=== PATIENT | male | born 1980 | race Caucasian/White ===

== ENCOUNTER 2023-09-07 23:44 | Emergency (ER) | payer OTHER, SELFPAY ==
[2023-09-07 23:50] VITALS: BP 172/98; PULSE 81; RESP 16; TEMP 37; O2SAT 96; O2SAT 97; BMI 34.4
[2023-09-07 23:51] VITALS: BP 200/109; O2SAT 95
--- NOTE | 2023-09-07 23:52 | ECG_ITS ---
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
[2023-09-08] VITALS (10 sets, daily range): BP systolic 138–177; BP diastolic 90–94; PULSE 70–82; RESP 12–22; O2SAT 96–99
--- NOTE | 2023-09-08 00:11 | ED_ITS ---
HPI - Arrhythmia/Palpitations General Chief Complaint: Arrhythmia/Palpitations Stated Complaint: chest pain Time Seen by Provider: 09/07/23 23:57 Source: patient Mode of arrival: walk-in Limitations: no limitations History of Present Illness HPI narrative: patient presents complaining of a flutter in his chest tonight. States similar flutter on and off over past couple of years with neg workup including echo. Che s have history of HTN and admits to poor compliance taking his medication and states he smokes too much. No chest pain or nausea Related Data Home Medications Medication Instructions Recorded Confirmed lisinopril 20 mg tablet 20 mg PO DAILY 09/07/23 09/07/23 metoprolol tartrate 25 mg tablet 25 mg PO DAILY 09/07/23 09/07/23 Allergies Allergy/AdvReac Type Severity Reaction Status Date / Time No Known Drug Allergies Allergy Verified 09/07/23 23:49 Review of Systems ROS Status of ROS 10 or more systems reviewed and unremark able except as noted in history and below PFS PFS Social History Smoking status: Current every day smoker Exam Constitutional Vital Signs, click to edit/add: Last Vital Signs Temp 98.6 F 09/07/23 23:50 Pulse 75 09/08/23 01:00 Resp 21 09/08/23 01:00 BP 177/90 H 09/08/23 00:03 Pulse Ox 96 09/08/23 00:20 O2 Del Method Room Air 09/07/23 23:50 Common normals: no apparent distress, average body habitus, oriented x3, no limitations, healthy appearing, alert and well nourished [facility] Common normals: normocephalic and head/scalp atraumatic Eye Common normals: PERRL, EOMs intact bilaterally and conjunctivae normal Respiratory Common normals: normal respiratory effort, no retractions and no use of accessory muscles Cardio Common normals: regular rate, regular rhythm, S1 normal heart sound and S2 normal heart sound GI Common normals: Normal to inspection, nondistended, normoactive bowel sounds present, soft to palpation and non-tender Extremity Common normals: normal to inspection Neuro Common normals: oriented x3, CN's II-XII intact bilaterally, moves all extremities and no focal motor deficits Psych Appearance: grossly normal Course Vital Signs Vital signs: Vital Signs Temperature 98.6 F 09/07/23 23:50 Pulse Rate 81 09/07/23 23:50 Respiratory Rate 16 09/07/23 23:50 Blood Pressure 172/98 H 09/07/23 23:50 Pulse Oximetry 97 09/07/23 23:50 Oxygen Delivery Method Room Air 09/07/23 23:50 Temperature 98.6 F 09/07/23 23:50 Pulse Rate 75 09/08/23 01:00 Respiratory Rate 21 09/08/23 01:00 Blood Pressure 177/90 H 09/08/23 00:03 Pulse Oximetry 96 09/08/23 00:20 Oxygen Delivery Method Room Air 09/07/23 23:50 MDM - Arrhythmia/Palpitations MDM Narrative Medical decision making narrative: patient presents complaining of heart flutter on and off today. Similar problem on and off for a couple of years. Exam neg. including clear chest. Troponin neg, d-dimer neg. Clinically patient not in CHF and no suspicion of pneumonia. discharged home in god condition to follow up with his doctor Lab Data Labs: Lab Results 09/08/23 Range/Units 00:02 WBC 14.9 H (4.0-11.0) 10^3/uL RBC 5.08 (4.70-6.10) 10^6/uL Hgb 15.5 (14.0-18.0) g/dL Hct 44.8 (42.0-54.0) % MCV 88.2 (80.0-94.0) fL MCH 30.5 (25.9-34.0) pg MCHC 34.6 (29.9-35.2) g/dL RDW 12.3 (11.0-15.0) % Plt Count 200 (150-450) 10^3/uL MPV 10.6 (9.5-13.5) fL Neut % (Auto) 70.7 (43.0-75.0) % Lymph % (Auto) 22.3 (20.5-60.0) % [place] % (Auto) 5.2 (1.7-12.0) % Eos % (Auto) 1.0 (0.9-7.0) % Baso % (Auto) 0.4 (0.2-2.0) % Neut # (Auto) 10.5 H (1.4-6.5) 10^3/uL Lymph # (Auto) 3.3 (1.2-3.8) 10^3/uL [place] # (Auto) 0.8 (0.3-0.8) 10^3/uL Eos # (Auto) 0.2 (0.0-0.7) 10^3/uL Baso # (Auto) 0.1 (0.0-0.1) 10^3/uL Abs Immat Gran (auto) 0.06 H (0.00-0.03) 10^3/uL Imm/Tot Granulo (auto) 0.4 (0.0-0.5) % D-Dimer 0.38 (<=0.59) mg/L FEU Sodium 143 (136-145) mmol/L Potassium 3.8 (3.5-5.1) mmol/L Chloride 107 (98-107) mmol/L Carbon Dioxide 29.1 (21.0-32.0) mmol/L Anion Gap 10.7 BUN 18.0 (7.0-18.0) mg/dL Creatinine 0.96 (0.70-1.30) mg/dL Est GFR ( Amer) >60 (>=60) Est GFR (Non-Af Amer) >60 (>=60) BUN/Creatinine Ratio 18.8 Glucose 187 H (74-106) mg/dL Calcium 8.8 (8.5-10.1) mg/dL Troponin I High Sens 6.6 (4.0-76.1) pg/mL Discharge Plan Discharge Chief Complaint: Arrhythmia/Palpitations Clinical Impression: Palpitations Patient Disposition: Home, Self-Care Prescriptions / Home Meds: No Action lisinopril 20 mg tablet 20 mg PO DAILY metoprolol tartrate 25 mg tablet 25 mg PO DAILY Instructions: Heart Palpitations (ED) Additional Instructions: follow up with your doctor this week for recheck Stand Alone Forms: Portal Instructions Referrals: Physician,Non-Staff, MD [Primary Care Provider] - 1 week
--- NOTE | 2023-09-08 00:13 | XR_ITS ---
The [address] [address] Patient Name: SILVIA ANDERSON MRN: [id number] date: 1980 Sex: M Assigned Patient Location: ER Current Patient Location: ER Accession/Order Number: [id number] Exam Date: 09/08/2023 00:25 Report Date: 09/08/2023 00:47 At the request of: JUANA MORIN Procedure: XR chest 1V CXR HISTORY: Shortness of breath. COMPARISON: None. TECHNIQUE: 1 view of the chest submitted for review. FINDINGS: The lungs are hyperaerated. Lines and tubes: None No acute focal infiltrate. Prominence of bronchopulmonary markings. No effusion. Cardiac silhouette measures within normal limits. Pulmonary vascularity is prominent. Osseous structures are normal for age. XR/XR chest 1V IMPRESSION: Prominence of bronchopulmonary markings. Please correlate for viral pneumonia vs fluid overload. Electronically authenticated by: JOSE MARTIN DOYLE Date: 09/08/2023 00:47
[2023-09-08 00:31] LABS: Basophils Absolute Auto 0.1 10^3/uL (0.0-0.1); Basophils Percent Auto 0.4 % (0.2-2.0); Eosinophils Absolute Auto 0.2 10^3/uL (0.0-0.7); Hematocrit 44.8 % (42.0-54.0); Hemoglobin 15.5 g/dL (14.0-18.0); Immature Granulocytes Abs Auto 0.06 10^3/uL (0.00-0.03); Immature Granulocytes Pct Auto 0.4 % (0.0-0.5); Lymphocytes Absolute Auto 3.3 10^3/uL (1.2-3.8); Lymphocytes Percent Auto 22.3 % (20.5-60.0); Mean Corpuscular HGB Conc 34.6 g/dL (29.9-35.2); Mean Corpuscular Hemoglobin 30.5 pg (25.9-34.0); Mean Corpuscular Volume 88.2 fL (80.0-94.0); Mean Platelet Volume 10.6 fL (9.5-13.5); Monocytes Absolute Auto 0.8 10^3/uL (0.3-0.8); Monocytes Percent Auto 5.2 % (1.7-12.0); Neutrophils Absolute Auto 10.5 10^3/uL (1.4-6.5); Neutrophils Percent Auto 70.7 % (43.0-75.0); Platelet Count 200 10^3/uL (150-450); Red Blood Count 5.08 10^6/uL (4.70-6.10); Red Cell Distribution Width 12.3 % (11.0-15.0); White Blood Count 14.9 10^3/uL (4.0-11.0)
[2023-09-08 00:44] LABS: Anion Gap 10.7; BUN Creatinine Ratio 18.8; Calcium 8.8 mg/dL (8.5-10.1); Carbon Dioxide 29.1 mmol/L (21.0-32.0); Chloride 107 mmol/L (98-107); Estimated GFR (African America >60 (>=60); Estimated GFR (Non-African Ame >60 (>=60); Glucose 187 mg/dL (74-106); Potassium 3.8 mmol/L (3.5-5.1); Sodium 143 mmol/L (136-145); Troponin I High Sensitivity 6.6 pg/mL (4.0-76.1)
[2023-09-08 00:59] LABS: D Dimer 0.38 mg/L FEU (<=0.59)
== END 2023-09-08 01:15 | disposition home or self-care (01) ==
PROVIDERS: Emergency Provider Internal Medicine; PCP Family Medicine
DX: R00.2 Palpitations (principal); I10 Essential (primary) hypertension; Z79.899 Other long term (current) drug therapy; F17.210 Nicotine dependence, cigarettes, uncomplicated
CPT/HCPCS: 36415; 71045; 80048; 84484; 85025; 85378; 93005; 99285

== ENCOUNTER 2024-01-26 10:36 | Outpatient (OUT) | payer OTHER, SELFPAY ==
[2024-01-26 11:26] LABS: Basophils Absolute Auto 0.1 10^3/uL (0.0-0.1); Basophils Percent Auto 0.4 % (0.2-2.0); Eosinophils Absolute Auto 0.2 10^3/uL (0.0-0.7); Eosinophils Percent Auto 1.5 % (0.9-7.0); Hematocrit 44.6 % (42.0-54.0); Hemoglobin 15.4 g/dL (14.0-18.0); Immature Granulocytes Abs Auto 0.06 10^3/uL (0.00-0.03); Immature Granulocytes Pct Auto 0.5 % (0.0-0.5); Lymphocytes Absolute Auto 2.5 10^3/uL (1.2-3.8); Lymphocytes Percent Auto 22.1 % (20.5-60.0); Mean Corpuscular HGB Conc 34.5 g/dL (29.9-35.2); Mean Corpuscular Hemoglobin 29.6 pg (25.9-34.0); Mean Corpuscular Volume 85.8 fL (80.0-94.0); Mean Platelet Volume 10.1 fL (9.5-13.5); Monocytes Absolute Auto 0.5 10^3/uL (0.3-0.8); Monocytes Percent Auto 4.5 % (1.7-12.0); Neutrophils Absolute Auto 8.1 10^3/uL (1.4-6.5); Platelet Count 208 10^3/uL (150-450); White Blood Count 11.5 10^3/uL (4.0-11.0)
[2024-01-26 11:48] LABS: Estimated Average Glucose 128 mg/dL; Glycohemoglobin A1C 6.1 % (4.5-6.2)
[2024-01-26 12:57] LABS: Alanine Aminotransferase 42 U/L (16-63); Albumin Globulin Ratio 1.2; Albumin Level 3.8 g/dL (3.4-5.0); Alkaline Phosphatase 82 U/L (46-116); Anion Gap 12.1; Aspartate Amino Transferase 21 U/L (15-37); BUN Creatinine Ratio 16.2; Bilirubin Total 0.6 mg/dL (0.2-1.0); Calcium 8.5 mg/dL (8.5-10.1); Carbon Dioxide 28.1 mmol/L (21.0-32.0); Chloride 104 mmol/L (98-107); Chol HDL Ratio 6.8; Cholesterol 216 mg/dL (<=200); Estimated GFR (African America >60 (>=60); Estimated GFR (Non-African Ame >60 (>=60); Free T3 3.41 pg/mL (2.18-3.98); Globulin 3.3 g/dL; Glucose 138 mg/dL (74-106); HDL Cholesterol 32 mg/dL (40-60); Potassium 4.2 mmol/L (3.5-5.1); Sodium 140 mmol/L (136-145); Thyroid Stimulating Hormone 1.654 uIU/mL (0.358-3.740); Total Protein 7.1 g/dL (6.4-8.2); Triglycerides 172 mg/dL (<=150); VLDL CHOLESTEROL 34.4 mg/dL
[2024-01-26 13:02] LABS: Prostate Specific Antigen Scrn 1.85 ng/mL (<=4.00)
[2024-01-27 05:07] LABS: Insulin 21.5 uIU/mL (2.6-24.9)
== END 2024-01-26 10:37 | disposition home or self-care (01) ==
LOC: LAB 10:39
PROVIDERS: PCP Family Medicine; Visit Provider Family Medicine
DX: Z00.00 Encounter for general adult medical examination without abnormal findings (principal)
CPT/HCPCS: 36415; 80053; 80061; 83036; 83525; 84436; 84443; 84481; 85025; G0103

== ENCOUNTER 2024-02-21 21:01 | Emergency (ER) | payer OTHER, SELFPAY ==
--- OUTSIDE RECORDS SUMMARY | 2024-02-21 21:05 | XMS_ITS | CCD ---
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 [facility] Comment on above: Performed By: #### B SHANDRA ALEJANDRA #### [facility] [address] [address] [address] Ishan Cage HSTROP 4.5 pg/mL Normal 4.0-76.1 [facility] Comment on above: Result Comment: CUT- OFF POINTS HAVE BEEN ESTABLISHED BASED ON THE FOURTH UNIVERSAL DEFINITIONS OF MYOCARDIAL INFARCTION. THE UPPER REFERENCE LIMIT (URL) OF TROPONIN, DEFINED THE 99TH PERCENTILE OF cTnI DISTRIBUTION IN A REFERENCE POPULATION, HAS BEEN CONFIRMED THE DECISION THRESHOLD FOR IA DIAGNOSIS. Performed By: #### B SHANDRA ALEJANDRA #### [facility] [address] [address] [address] Ishan Cage BAHMAN 33 ng/mL Normal 16-96 [facility] Comment on above: Performed By: #### B SHANDRA ALEJANDRA #### [facility] [address] [address] [address] Ishan Cage CBC AUTO DIFFon 04-22-2022 BASO # 0.1 103/ul Normal 0.0-0.1 [facility] Comment on above: Performed By: #### C BC ####[facility] [address] [id number] Cage Basophils/100 WBC (Bld) 0.4 % Normal 0.2-2.0 [facility] Comment on above: Performed By: #### C BC ####[facility] [address] [address]DrEllen Cage EO # 0.1 103/ul Normal 0.0-0.7 [facility] Comment on above: Performed By: #### C BC ####[facility] [address] [address]DrEllen Cage Eosinophils/100 WBC (Bld) 1.2 % Normal 0.9-7.0 [facility] Comment on above: Performed By: #### C BC ####[facility] [address] [address]DrEllen Cage Erythrocyte distribution width (RBC) [Ratio] 12.1 % Normal 11.0-15.0 [facility] Comment on above: Performed By: #### C BC ####[facility] [address] [id number] Cage Hematocrit (Bld) [Volume fraction] 45.6 % Normal 42.0-54.0 [facility] Comment on above: Performed By: #### C BC ####[facility] [address] [id number] Cage Hemoglobin (Bld) [Mass/Vol] 15.7 g/dL Normal 14.0-18.0 [facility] Comment on above: Performed By: #### C BC ####[facility] [address] [address]Dr. Ishan Cage IG # 0.04 10e3/ul Critically high 0.00-0.03 [facility] Comment on above: Performed By: #### C BC ####[facility] [address] [address]Dr. Ishan Cage IG % 0.4 % Normal 0.0-0.5 [facility] Comment on above: Performed By: #### C BC ####[facility] [address] [address]Dr. Ishan Cage LYMPH # 2.9 103/ul Normal 1.2-3.8 [facility] Comment on above: Performed By: #### C BC ####[facility] [address] [address]Dr. Ishan Cage Lymphocytes/100 WBC (Bld) 25.9 % Normal 20.5-60.0 [facility] Comment on above: Performed By: #### C BC ####[facility] [address] [address]Dr. Ishan Cage MANUAL DIFF REQ NO Normal [facility] Comment on above: Performed By: #### C BC ####[facility] [address] [address]Dr. Isahn Cage MCH (RBC) [Entitic mass] 29.8 pg Normal 25.9-34.0 [facility] Comment on above: Performed By: #### C BC ####[facility] [address] [address]Dr. Ishan Cage MCHC (RBC) [Mass/Vol] 34.4 g/dL Normal 29.9-35.2 [facility] Comment on above: Performed By: #### C BC ####[facility] [address] [address]Dr. Ishan Cage MCV (RBC) [Entitic vol] 86.5 fL Normal 80.0-94.0 [facility] Comment on above: Performed By: #### C BC ####[facility] [address] [id number]. Ishan Cage MONO # 0.5 103/ul Normal 0.3-0.8 [facility] Comment on above: Performed By: #### C BC ####[facility] [address] [id number]. Ishan Cage Monocytes/100 WBC (Bld) 4.7 % Normal 1.7-12.0 [facility] Comment on above: Performed By: #### C BC ####[facility] [address] [id number]. Ishan Cage NEUT # 7.6 103/ul Critically high 1.4-6.5 [facility] Comment on above: Performed By: #### C BC ####[facility] [address] [address]Dr. Ishan Cage Neutrophils/100 WBC (Bld) 67.4 % Normal 43.0-75.0 [facility] Comment on above: Performed By: #### C BC ####[facility] [address] [id number]. Ishan Cage Platelet mean volume (Bld) [Entitic vol] 9.8 fL Normal 9.5-13.5 [facility] Comment on above: Performed By: #### C BC ####[facility] [address] [id number]. Ishan Cage PLT 195 103/ul Normal 150-450 [facility] Comment on above: Performed By: #### C BC ####[facility] [address] [id number]. Ishan Cage RBC 5.27 106/ul Normal 4.70-6.10 [facility] Comment on above: Performed By: #### C BC ####[facility] [address] [id number]. Aylinishmael Niles WBC 11.2 103/ul Critically high 4.0-11.0 [facility] Comment on above: Performed By: #### C BC ####[facility] [address] [address]Dr. Ishan Cage D-DIMERon 04-22-2022 D-DIMER 0.32 mg/L FEU Normal <=0.59 [facility] Comment on above: Performed By: #### D DIM #### [facility] [address] [address] [address] Ishan Cage D-DIMER COMMENTS SEE BELOW Normal [facility] Comment on above: Result Comment: Incr eases in D-Dimer concentration observed with thromboembolic events can be variable due to localization, size, and age of the thrombus. Therefore, a thromboembolic event cannot be diagnosed with certainty on the basis of the reference range. D-Dimers may also be elevated for a variety of disorders including: advanced age, , coronary disease, cancer, liver disease, infection, inflammation, hematoma, DIC, trauma, post-surgery, diabetes, thrombolytic or anticoagulant therapy, stress, and generalized hospitalization. Performed By: #### D DIM #### [facility] [address] [address] [address] Ishan Cage PROF CHEM 8 (BAS METB)on Anion gap [Moles/Vol] 11.9 mmol/L Normal [facility] Comment on above: Performed By: #### B SHANDRA ALEJANDRA #### [facility] [address] [address] [address] Ishan Cage Calcium [Mass/Vol] 8.9 mg/dL Normal 8.5-10.1 [facility] Comment on above: Performed By: #### B SHANDRA ALEJANDRA #### [facility] [address] [address] [address] Ishan Cage Chloride [Moles/Vol] 107 mmol/L Normal 98-107 [facility] Comment on above: Performed By: #### B SHANDRA ALEJANDRA #### [facility] [address] [address] [address] Ishan Cage CO2 [Moles/Vol] 24.7 mmol/L Normal 21.0-32.0 [facility] Comment on above: Performed By: #### B JUSTYN, CMADM #### [facility] [address] [address] [address] Ishan Cage Creatinine [Mass/Vol] 0.86 mg/dL Normal 0.70-1.30 [facility] Comment on above: Performed By: #### B JUSTYN, CMADM #### [facility] [address] [address] [address] Ishan Cage EGFR-AF WELSH >60 Normal >=60 [facility] Comment on above: Performed By: #### B JUSTYN, CMADM #### [facility] [address] [address] [address] Ishan Cage EGFR-NON AF WELSH >60 Normal >=60 [facility] Comment on above: Performed By: #### B JUSTYN, CMADM #### [facility] [address] [address] [address] Ishan Cage Glucose [Mass/Vol] 129 mg/dL Critically high 74-106 [facility] Comment on above: Performed By: #### B JUSTYN, CMADM #### [facility] [address] [address] [address] Ishan Cage Potassium [Moles/Vol] 3.6 mmol/L Normal 3.5-5.1 [facility] Comment on above: Performed By: #### B JUSTYN, CMADM #### [facility] [address] [address] [address] Ishan Cage Sodium [Moles/Vol] 140 mmol/L Normal 136-145 [facility] Comment on above: Performed By: #### B JUSTYN, CMADM #### [facility] [address] [address] [address] Ishan Cage Urea nitrogen [Mass/Vol] 13.0 mg/dL Normal 7.0-18.0 [facility] Comment on above: Performed By: #### B JUSTYN, CMADM #### [facility] [address] [address] [address] Ishan Cage Urea nitrogen/Creatinin e [Mass ratio] 15.1 mg/mg Normal [facility] Comment on above: Performed By: #### B , [facility] #### [facility] [address] [address] [address] Ishan Cage XR CHEST 2 Von 04-22-2022 XR CHEST 2 V CXR HISTORY: Shortness of breath. COMPARISON: 12/25/2021 chest x-ray TECHNIQUE: 2 view of the chest submitted for review. FINDINGS: Mild prominence of perihilar interstitial lung markings. Punctate calcified granulomas are demonstrated diffusely throughout bilateral lung garcia. The lungs are hyperaerated with increased retrosternal airspace and flattening of the hemidiaphragms. The cardiac silhouette measures within normal. Pulmonary vascularity is unremarkable. Osseous structures are normal for age. IMPRESSION: 1. Hyperexpanded lungs which can be seen in the setting of COPD. 2. Mild prominence of perihilar interstitial lung markings. Please correlate for viral pneumonia versus fluid overload and/or chronic interstitial lung disease. Short-term follow-up is recommended to exclude other etiologies. Electronically authenticated by: JOSE MARTIN DOYLE Date: 2022-04-22 00:17 Normal [facility] NM STRESS ONLY SINGLEon 01-01 NM STRESS ONLY SINGLE Patient: EMEKA PANIAGUA Exam Date: 01/20/2022 : 1980 Gender:M Ordering : DR REJI BENAVIDEZ . Admission #: [id number] Family : Order #: [id number] CLICK HERE TO VIEW EXAM RADIOLOGY REPORT PROCEDURE: RADIONUCLIDE IMAGING STRESS ONLY COMPARISON: None. INDICATIONS: Chest pain TECHNIQUE: Exam Description: Rest Only two day protocol non-gated SPECT Rest Imagin.1 mCi Tc-99m Cardiolite IV on 01/20/2022 Stress Imaging mCi Tc-99m Cardiolite IV on Exercise Protocol: 0.4 mg Lexiscan given IV Heart Rate (bpm): Rest: Max: PMHR: Blood Pressure: Rest: Max: Symptoms: FINDINGS: QUALITY OF STUDY: Excellent. PERFUSION DEFECT: NONE ON REST IMAGES. STRESS IMAGING NOT PERFORMED. LOCATION: SIZE: SEVERITY: TYPE: WALL MOTION: LV SIZE: TID / TCD: LVEF: SUMMARY: CONCLUSION: 1. Evaluation is of rest images only; no visible defect. Patient did not return for stress imaging. Dictated by: Hung Yuan M.D. on 03/05/2022 at 09:19 Approved by: Hung Yuan M.D. on 03/05/2022 at 09:24 Normal [facility] Coding Summary.on 06-29-2020 Coding Summary. 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 However, the narrative phrase printed from the coding software may appear abbreviated, or result in slightly different terminology. Coded By: Betsy Rizzo Date Saved: 06/29/2020 09:24 am Normal [facility] Provider Letter FTon 06-19 Provider Letter [facility] Reji Benavidez, [address] [place] [address] Re: EMEKA PANIAGUA Date of : 1980 Thank you for your referral of Emeka Paniagua who was seen on consultation on June 14, 2020, for lesion on tip of nose, possible furuncle. I have enclosed my consultation note for your review. A biopsy is planned. I will be happy to follow Emeka should his symptoms persist. Sincerely, Morro Morley MD General Surgery [facility] Ambulatory Clinical Summaryo n 06-14-2020 Ambulatory Clinical Summary {[id number] }[id number] [facility] General Surgery Office/Clini c Noteon 06-14-2020 General Surgery Office/Clinic Note Chief Complaint follow up nasal furuncle HPI Staff Follow up nasal furuncle. Scab has fallen off. Continues to have nodular appearance. Denies bleeding or drainage. History of Present Illness follow up for lesion tip of nose, possible furuncle; no change in size, no drainage; scab off now, no bleeding. Review of Systems ROS - Provider Constitutional: no fever, no sweats, no weight loss. Eyes: no glasses, no blurred vision, no visual loss. ENMT: no dentures, no hoarseness, no swallowing difficulties, no hearing loss, no ear infection(s), no nose bleeds. Cardiovascular: normal blood pressure, no chest pain, regular heartbeat, no heart murmur. Respiratory: no shortness of breath, no cough, no asthma, no wheezing. Gastrointestinal: no nausea, no vomiting, no diarrhea, no constipation, no blood in stool, no change in bowel habits, no abdominal pain, no hepatitis. Genitourinary: no kidney stones, no urine infection, no dysuria. Musculoskeletal: no pain, no weakness. Skin: no changing moles, no rash, yes skin lumps. Neurologic: no seizures, no epilepsy, no headache. Psychiatric: no emotional or psychiatric problem. Heme/Lymph: no bleeding problems, no anemia, no blood clots, no transfusions. Allergy/Immunologic: no swollen lymph nodes/glands, no IV drug abuse. Other: Additional ROS info: Except as noted in the above Review of Systems and in the History of Present Illness, all other systems have been reviewed and are negative or noncontributory. Physical Exam Vitals & Measurements T: 36.5 ?C (Tympanic) skin: tip of nose with 1.2 cm firm. raised nodule, irregular surface, no bleeding or pigmentation change, no drainage or fluctuance. Assessment/Plan 1. Neoplasm of uncertain behavior of skin of nose (D48.5: Neoplasm of uncertain behavior of skin) incisional biopsy obtained under local anesthesia with 1% lidocaine plain; tolerated well, sterile dressing applied; will call patient with results. Ordered: Pathology Tissue Exam Follow-up No qualifying data available Problem List/Past Medical History Ongoing ED (erectile dysfunction) Furuncle of face Neoplasm of uncertain behavior of skin of nose Tobacco use Historical No qualifying data Procedure/Surgical History Loss of teeth due to extraction. Medications Cipro 500 mg Tab, 500 mg= 1 tab(s), Oral, BID doxycycline monohydrate 100 mg oral capsule, 100 mg= 1 cap(s), Oral, BID Viagra 100 mg Tab, 100 mg= 1 tab(s), Oral, Daily Allergies No Known Allergies No Known Medication Allergies Social History Alcohol - Denies Alcohol Use, 06/12/2020 Substance Abuse - Denies Substance Abuse, 06/12/2020 Tobacco 10 or more cigarettes (1/2 pack or more)/day in last 30 days Tobacco Use:., 06/12/2020 Family History Cardiac arrest: Mother. Hypertension: Mother. Normal [facility] Comment on above: Result Comment: Elec tronically Signed By: TOM WARREN, [place]ro [place]\Date and Time Signed: 06/14/20 17:15 EST Physician Referralon 020 Physician Referral [id number]: 127 Normal [facility] Ambulatory Clinical Summaryo n 06-12-2020 Ambulatory Clinical Summary {[id number] }[id number] Normal [facility] General Surgery Office/Clini c Noteon 06-12-2020 General Surgery Office/Clinic Note Chief Complaint referral for black lesion on tip of nose HPI Staff 39 year old male presents on consultation from Dr. Benavidez for black, painful lesion tip of nose. Present for roughly two weeks. Started with white center. Attempted to pop by squeezing which resulted in clear material being expressed. Prescribed Cipro 500mg BID 10 days, Doxycycline 100mg BID x 10 days and Cleocin-T gel BID on 06/10. History of Present Illness 39 yo male with 2 week h/o painful swelling on nose, began as pimple, poked it with a pin and tried to squeeze it, caused increased inflammation, swelling, no drainage; no fevers, started on antibiotics [address] Benavidez; no improvement yet, no h/o skin cancer or excessive sun exposure, no h/o similar problem in past. no h/o MRSA. Review of Systems PHQ Score Initial Depression Screen Score: 0 ROS - Provider Constitutional: no fever, no sweats, no weight loss. Eyes: no glasses, no blurred vision, no visual loss. ENMT: no dentures, no hoarseness, no swallowing difficulties, no hearing loss, no ear infection(s), no nose bleeds. Cardiovascular: normal blood pressure, no chest pain, regular heartbeat, no heart murmur. Respiratory: no shortness of breath, no cough, no asthma, no wheezing. Gastrointestinal: no nausea, no vomiting, no diarrhea, no constipation, no blood in stool, no change in bowel habits, no abdominal pain, no hepatitis. Genitourinary: no kidney stones, no urine infection, no dysuria. Musculoskeletal: no pain, no weakness. Skin: no changing moles, no rash, yes skin lumps. Neurologic: no seizures, no epilepsy, no headache. Psychiatric: no emotional or psychiatric problem. Heme/Lymph: no bleeding problems, no anemia, no blood clots, no transfusions. Allergy/Immunologic: no swollen lymph nodes/glands, no IV drug abuse. Other: Additional ROS info: Except as noted in the above Review of Systems and in the History of Present Illness, all other systems have been reviewed and are negative or noncontributory. Physical Exam Vitals & Measurements T: 36.4 ?C (Tympanic) HR: 80(Peripheral) RR: 16 BP: 144/88 HT: 182.9 cm HT: 182.88 cm WT: 117.1 kg WT: 117.1 kg BMI: 35.01 HEENT: normal conjunctiva, sclera clear, no scleral icterus, EOM intact, PERRLA, oral mucosa moist without lesions. Neck: trachea midline, no mass, symmetric, no thyromegaly or nodules, no adenopathy Respiratory: lungs CTA, respirations non labored. Cardiovascular: regular rate and rhythm, no murmur, no pedal edema or varicosities. Lymphatic: no cervical adenopathy, no axillary adenopathy, Musculoskeletal: normal gait, digits and nails without infection, nodes, cyanosis, clubbing. Skin: no rashes, no lesions, no ulcers, tip of nose with 1.2 cm raised, erythematous lesion with 3 mm area scab, no fluctuance or drainage, tender Psychiatric/Neuro: oriented to time, place, person, judgement normal, affect appropriate for age, insight intact, no focal deficits. Tests: review of old records completed, Assessment/Plan 1. Furuncle of face (L02.02: Furuncle of face) irritated from puncturing and squeezing area; warm compresses, keep clean and dry; continue antibiotics, no topical creams; follow up in 2 days for recheck, call sooner if problems/questions. 2. Tobacco use (Z72.0: Tobacco use) We strongly recommend to quit tobacco use. Cigarette smoking harms nearly every organ of the body, causes many diseases, and reduces the health of smokers in general. Quitting smoking lowers your risk for smoking-related diseases and can add years to your life. We encourage you to visit www.smokefree.gov access to helpful resources including free telephone support. If you decide on prescription treatment to help you quit, your family doctor would be happy to provide these. 3. BMI 35.0-35.9,adult (Z68.35: Body mass index [BMI] 35.0-35.9, adult) recommend diet and exercise. Ordered: Most recent diastolic blood pressure 80-89 mm Hg 3079F Most recent systolic blood pressure >= 140 mm Hg 3077F Follow-up No qualifying data available Patient Education Exercise to Lose Weight, [id number] Problem List/Past Medical History Ongoing ED (erectile dysfunction) Furuncle of face Tobacco use Historical No qualifying data Procedure/Surgical History Loss of teeth due to extraction. Medications Cipro 500 mg Tab, 500 mg= 1 tab(s), Oral, BID Cleocin T 1% topical gel, 1 bruce, Topical, BID doxycycline monohydrate 100 mg oral capsule, 100 mg= 1 cap(s), Oral, BID Viagra 100 mg Tab, 100 mg= 1 tab(s), Oral, Daily Allergies No Known Allergies No Known Medication Allergies Social History Alcohol - Denies Alcohol Use, 06/12/2020 Substance Abuse - Denies Substance Abuse, 06/12/2020 Tobacco 10 or more cigarettes (1/2 pack or more)/day in last 30 days Tobacco Use:., 06/12/2020 Family History Cardiac arrest: Mother. Hypertension: Mother. Normal [facility] [place] Comment on above: Result Comment: Elec tronically Signed By: TOM WARREN, [place]\Date and Time Signed: 06/12/20 15:12 EST Patient Educationon 06-12-20 20 Patient Education Exercise to Lose James ght Exercise and a healthy diet may help you lose weight. Your doctor may suggest specific exercises. EXERCISE IDEAS AND TIPS ? Choose low-cost things you enjoy doing, such as walking, bicycling, or exercising to workout videos. ? Take stairs instead of the elevator. ? Walk during your lunch break. ? Park your car further away from work or school. ? Go to a gym or an exercise class. ? Start with 5 to 10 minutes of exercise each day. Build up to 30 minutes of exercise 4 to 6 days a week. ? Wear shoes with good support and comfortable clothes. ? Stretch before and after working out. ? Work out until you breathe harder and your heart beats faster. ? Drink extra water when you exercise. ? Do not do so much that you hurt yourself, feel dizzy, or get very short of breath. Exercises that burn about 150 calories: ? Running 1 ? miles in 15 minutes. ? Playing volleyball for 45 to 60 minutes. ? Washing and waxing a car for 45 to 60 minutes. ? Playing touch football for 45 minutes. ? Walking 1 ? miles in 35 minutes. ? Pushing a stroller 1 ? miles in 30 minutes. ? Playing basketball for 30 minutes. ? Raking leaves for 30 minutes. ? Bicycling 5 miles in 30 minutes. ? Walking 2 miles in 30 minutes. ? Dancing for 30 minutes. ? Shoveling snow for 15 minutes. ? Swimming laps for 20 minutes. ? Walking up stairs for 15 minutes. ? Bicycling 4 miles in 15 minutes. ? Gardening for 30 to 45 minutes. ? Jumping rope for 15 minutes. ? Washing windows or floors for 45 to 60 minutes. Document Released: 08/21/2011 Document Revised: 10/10/2012 Document Reviewed: 08/21/2011 ExitCare? Patient Information ?2013 [email or web address] [facility] Encounters Encounter Date Encounter Type Care Provider Facility Start: 05-03-2023 ambulatory Guanakito Bunn acility:[facility] Start: 12-21-2022 End: 12-30-2022 ambulatory SERGE RUBALCAVA Facility:[facility] Start: 10-27-2022 End: 10-27-[address] SUSIE CLEMENTS Facility:[facility] Start: 10-25-2022 End: 10-25-[address] REJI BENAVIDEZ . Facility:[facility] Start: 08-29-2022 End: 08-29-[address] REJI BENAVIDEZ . Facility:[facility] Start: 04-22-2022 End: 04-22-2022 ambulatory JUANA MORIN Facility:[facility] Start: 01-27-[address] REJI BENAVIDEZ . Facili ty:[facility] Start: 01-20-2022 End: 01-21-[address] REJI BENAVIDEZ . Facility: Payers Date Payer Category Payer Self-pay 1980 Unknown [id number] 2.16.84 [id number] 1980 Unknown [id number] 2.16.84 [id number] 1980 Unknown [id number] 2.16.84 [id number] 1980 Unknown [id number] 2.16.84 [id number] 1980 Unknown [id number] 2.16.84 [id number] 1980 Unknown [id number] 2.16.84 [id number] 1980 Unknown [id number] 2.16.84 [id number] 1959 Unknown [id number] 1959 Unknown [id number] Unknown [id number] Unknown Unknown [id number] 2.16.8 [id number] Summary Purpose Family History No Family History Records FoundNo Family History Records FoundNo Family History Records Found Advance Directives No Advanced Directives Records FoundNo Advanced Directives Records FoundNo Advanced Directives Records Found Additional Source Comments (unrecognized sect ion and content) No Status Records FoundNo Status Records FoundNo Status Records Found INFORMATION SOURCE (unrecogn ized section and content) DATE CREATED AUTHOR 06/29/2020 [facility] DATE CREATED AUTHOR AUTHOR'S ORGANIZ ATION 01/08/2023 Malena Mack [facility] DATE CREATED AUTHOR AUTHOR'S ORGANIZ ATION 08/06/2023 [facility] FOR RECORDS PERTAINING TO PATIENTS WHO ARE OR HAVE BEEN ENROLLED IN A CHEMICAL DEPENDENCY/SUBSTANCEABUSE PROGRAM, SOME INFORMATION MAY BE OMITTED. This clinical summary was aggregated from multiple sources. Caution should be exercised in using it in the provision of clinical care. This summary normalizes information from multiple sources, and as a consequence, information in this document may materially change the coding, format and clinical context of patient data. In addition, data may be omitted in some cases. CLINICAL DECISIONS SHOULD BE BASED ON THE PRIMARY CLINICAL RECORDS. [employer] [facility]. provides no warranty or guarantee of the accuracy or completeness of information in this document.
[2024-02-21 21:22] VITALS: BP 153/85; PULSE 69; O2SAT 97; BMI 33.9
--- NOTE | 2024-02-21 21:25 | PC.NURSE ---
Wanted blood pressure check, home blood pressure machine not working.
== END 2024-02-21 21:30 | disposition left against medical advice (07) ==
PROVIDERS: Emergency Provider Emergency Medicine; PCP Family Medicine
DX: Z53.21 Procedure and treatment not carried out due to patient leaving prior to being seen by health care provider (principal)

== ENCOUNTER 2024-07-31 09:10 | Emergency (ER) | payer OTHER, SELFPAY ==
[2024-07-31] VITALS (12 sets, daily range): BP systolic 127–157; BP diastolic 60–79; PULSE 60–72; TEMP 36.8; O2SAT 96–98; BMI 33.2
--- OUTSIDE RECORDS SUMMARY | 2024-07-31 09:37 | XMS_ITS | CCD ---
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 Reviewed: 08/21/2011 ExitCare? Patient Information ?2013 [employer] [facility] Encounters Encounter Date Encounter Type Care Provider Facility Start: 05-03-2023 ambulatory Guanakito Bunn acility:[facility] Start: 12-21-2022 End: 12-30-2022 ambulatory SERGE RUBALCAVA [...] Date Payer Category Payer Self-pay 1980 Unknown [id number] 2.16.84 [id number] 1980 Unknown [id number] 2.16.84 [id number] 1980 Unknown [id number] 2.16.84 [id number] 1980 Unknown [id number] 2.16.84 [id number] 1980 Unknown [id number] 2.16.84 [id number] 1980 Unknown [id number] 2.16.84 [id number] 1980 Unknown [id number] 2.16.84 [id number] 1959 Unknown [id number] 1959 Unknown [id number] Unknown [id number] Unknown Unknown [id number] 2.16.8 [id number] Summary Purpose Family History No Family History Records FoundNo Family History Records FoundNo Family History Records Found Advance Directives No Advanced Directives Records FoundNo Advanced Directives Records FoundNo Advanced Directives Records Found Additional Source Comments (unrecognized sect ion and content) No Status Records FoundNo Status Records FoundNo Status Records Found INFORMATION SOURCE (unrecogn ized section and content) DATE CREATED AUTHOR 06/29/2020 [facility] DATE CREATED AUTHOR AUTHOR'S ORGANIZ ATION 01/08/2023 Malena Mack [facility] DATE CREATED AUTHOR AUTHOR'S ORGANIZ ATION 08/06/2023 [facility] FOR RECORDS PERTAINING TO PATIENTS WHO [...] BE BASED ON THE PRIMARY CLINICAL RECORDS. [facility] [employer] [facility]. provides no warranty or guarantee of the accuracy or completeness of information in this document.
--- NOTE | 2024-07-31 09:40 | ECG_ITS ---
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
[2024-07-31 10:00] LABS: Basophils Absolute Auto 0.1 10^3/uL (0.0-0.1); Basophils Percent Auto 0.4 % (0.2-2.0); Eosinophils Absolute Auto 0.2 10^3/uL (0.0-0.7); Eosinophils Percent Auto 1.3 % (0.9-7.0); Hematocrit 47.1 % (42.0-54.0); Hemoglobin 16.4 g/dL (14.0-18.0); Immature Granulocytes Abs Auto 0.06 10^3/uL (0.00-0.03); Immature Granulocytes Pct Auto 0.5 % (0.0-0.5); Lymphocytes Absolute Auto 2.8 10^3/uL (1.2-3.8); Lymphocytes Percent Auto 21.9 % (20.5-60.0); Mean Corpuscular HGB Conc 34.8 g/dL (29.9-35.2); Mean Corpuscular Hemoglobin 30.6 pg (25.9-34.0); Mean Corpuscular Volume 87.9 fL (80.0-94.0); Mean Platelet Volume 10.1 fL (9.5-13.5); Monocytes Absolute Auto 0.6 10^3/uL (0.3-0.8); Monocytes Percent Auto 4.9 % (1.7-12.0); Neutrophils Absolute Auto 9.1 10^3/uL (1.4-6.5); Platelet Count 227 10^3/uL (150-450); Red Blood Count 5.36 10^6/uL (4.70-6.10); Red Cell Distribution Width 12.1 % (11.0-15.0); White Blood Count 12.8 10^3/uL (4.0-11.0)
--- NOTE | 2024-07-31 10:01 | ED_ITS ---
HPI HPI - General Adult General Chief complaint: Arrhythmia/Palpitations Stated complaint: HEART PALPUTATIONS Time Seen by Provider: 07/31/24 09:11 Mode of arrival: walk-in History of Present Illness HPI narrative: Patient presents ED complaining of heart palpitations. He said he started with these yesterday and they have been on and off since. It is still happening this morning so he called his doctor's office and they told him to come in to the emergency room for further evaluation. Patient states he has had these on and off for 4 years but sometimes they get worse than others. He has had an echo and has worn a Holter monitor in the past with no specific diagnosis. He has not seen cardiology, this has just been managed and worked up so far by his primary doctor. He denies any chest pain or syncope. He said he sometimes feels a little dizzy when they occur. Denies any anxiety history or panic attacks. He is alert and oriented in no acute distress no current palpitations, vital signs stable. He does take blood pressure medication but only takes it when he feels the palpitations Related Data Home Medications ?Medication ?Instructions ?Recorded ?Confirmed lisinopril 20 mg tablet 20 mg PO DAILY 09/07/23 02/21/24 metoprolol tartrate 25 mg tablet 25 mg PO DAILY 09/07/23 02/21/24 Allergies Allergy/AdvReac Type Severity Reaction Status Date / Time celexa Allergy Hives Uncoded 02/21/24 21:22 Opioid HPI Opioid Management Most Recent Opioid Data: No Data to Display Review of Systems ROS Status of ROS 10 or more systems reviewed and unremark able except as noted in history and below PFSH PFSH Social History Smoking status: Current every day smoker Little interest or pleasure in doing things: not at all Feeling down, depressed, or hopeless: not at all Exam Narrative Exam Narrative: Time Seen: [] Vital Signs: [Per nurse's notes.] General: [Alert] Skin: [Warm, dry, no rash.] Head: [Normocephalic, atraumatic.] Neck: [Supple, trachea midline.] Eye: [Pupils are equal, round and reactive to light, extraocular movements are intact, normal conjunctiva.] Ears, nose, mouth and throat: oral mucosa moist. Cardiovascular: [Regular rate and rhythm, no murmur.] Respiratory: [Lungs are clear to auscultation, respirations are non-labored, breath sounds are equal.] Chest wall: [No tenderness, no deformity.] Gastrointestinal: [Soft, nontender, non distended, normal bowel sounds.] MSK: 5 out of 5 muscle strength x 4 extremities no calf pain or edema Lymphatics: [No lymphadenopathy.] Psychiatric: [Cooperative, appropriate mood & affect.] Neurological: [Alert and oriented to person, place, time, and situation, no foc al neurological deficit observed.] Constitutional Vital Signs, click to edit/add: Last Vital Signs Temp 98.2 F 07/31/24 09:30 Pulse 65 07/31/24 11:10 Resp 17 07/31/24 11:10 BP 127/69 07/31/24 11:10 Pulse Ox 96 07/31/24 11:10 O2 Del Method Room Air 07/31/24 11:10 Course Vital Signs Vital signs: Vital Signs Temperature 98.2 F 07/31/24 09:30 Pulse Rate 62 07/31/24 09:30 Respiratory Rate 18 07/31/24 09:30 Blood Pressure 157/79 H 07/31/24 09:30 Pulse Oximetry 98 07/31/24 09:30 Temperature 98.2 F 07/31/24 09:30 Pulse Rate 65 07/31/24 11:10 Respiratory Rate 17 07/31/24 11:10 Blood Pressure 127/69 07/31/24 11:10 Pulse Oximetry 96 07/31/24 11:10 Oxygen Delivery Method Room Air 07/31/24 11:10 Medical Decision Making [facility] Narrative Medical decision making narrative: Patient labs including electrolytes cardiac enzymes and thyroid panel are negative for acute findings. Patient has had no arrhythmias here. Patient does request referral to cardiology which was provided for him upon discharge. I do not see an indication at this time for inpatient admission or further cardiac monitoring since this has been going on for about 4 years. Please return to ED if worsening symptoms otherwise follow-up with family doctor and cardiology as directed. Patient comfortable care plan for home Differential Diagnosis Differential Diagnosis: Electrolyte abnormality, palpitations, thyroid abnormality Lab Data Lab results reviewed: Yes I reviewed the patient's lab results Labs: Lab Results 07/31/24 Range/Units 09:47 WBC 12.8 H (4.0-11.0) 10^3/uL RBC 5.36 (4.70-6.10) 10^6/uL Hgb 16.4 (14.0-18.0) g/dL Hct 47.1 (42.0-54.0) % MCV 87.9 (80.0-94.0) fL MCH 30.6 (25.9-34.0) pg MCHC 34.8 (29.9-35.2) g/dL RDW 12.1 (11.0-15.0) % Plt Count 227 (150-450) 10^3/uL MPV 10.1 (9.5-13.5) fL Neut % (Auto) 71.0 (43.0-75.0) % Lymph % (Auto) 21.9 (20.5-60.0) % [place] % (Auto) 4.9 (1.7-12.0) % Eos % (Auto) 1.3 (0.9-7.0) % Baso % (Auto) 0.4 (0.2-2.0) % Neut # (Auto) 9.1 H (1.4-6.5) 10^3/uL Lymph # (Auto) 2.8 (1.2-3.8) 10^3/uL [place] # (Auto) 0.6 (0.3-0.8) 10^3/uL Eos # (Auto) 0.2 (0.0-0.7) 10^3/uL Baso # (Auto) 0.1 (0.0-0.1) 10^3/uL Abs Immat Gran (auto) 0.06 H (0.00-0.03) 10^3/uL Imm/Tot Granulo (auto) 0.5 (0.0-0.5) % Sodium 141 (136-145) mmol/L Potassium 4.2 (3.5-5.1) mmol/L Chloride 105 (98-107) mmol/L Carbon Dioxide 26.5 (21.0-32.0) mmol/L Anion Gap 13.7 BUN 17.0 (7.0-18.0) mg/dL Creatinine 0.86 (0.70-1.30) mg/dL Est GFR ( Amer) >60 (>=60 mL/min/1.73m^2) Est GFR (Non-Af Amer) >60 (>=60 mL/min/1.73m^2) BUN/Creatinine Ratio 19.8 Glucose 195 H (74-106) mg/dL Calcium 8.8 (8.5-10.1) mg/dL Total Bilirubin 0.5 (0.2-1.0) mg/dL AST 16 (15-37) U/L ALT 36 (16-63) U/L Alkaline Phosphatase 86 (46-116) U/L Troponin I High Sens <4.0 L (4.0-76.1) pg/mL Total Protein 6.9 (6.4-8.2) g/dL Albumin 3.6 (3.4-5.0) g/dL Globulin 3.3 g/dL Albumin/Globulin Ratio 1.1 TSH 1.254 (0.358-3.740) uIU/mL Thyroxine (T4) 8.90 (4.50-12.10) ug/dL ECG Data Attestation: I personally reviewed and interpreted this ECG as follows: Interpretation: EKG INTERPRETATION Time: [] 939 Rate: [] 63 Rhythm: _ [] Normal sinus rhythm ST segments: _ [] T waves: _ [] Ectopy: _ [] P wave/CO interval: _ [] QRS interval: _ [] QT interval: _ [] Comparison: _ [] Comparison EKG date: [] Performed by: [self] no acute ST elevation or depression Discharge Plan Discharge Chief Complaint: Arrhythmia/Palpitations Clinical Impression: Palpitations Patient Disposition: Home, Self-Care Time of Disposition Decision: 11:02 Condition: Good Mode of Transportation: Private Vehicle Prescriptions / Home Meds: No Action lisinopril 20 mg tablet 20 mg PO DAILY metoprolol tartrate 25 mg tablet 25 mg PO DAILY Print Language: Nepali Instructions: Heart Palpitations (ED), Mediterranean Diet (DC) Referrals: Stevie Benavidez MD [Primary Care Provider] - 1 week Tra Bang MD [Physician] - 1 week Discharge Date/Time: 07/31/24 11:20
[2024-07-31 10:16] LABS: Alanine Aminotransferase 36 U/L (16-63); Albumin Globulin Ratio 1.1; Albumin Level 3.6 g/dL (3.4-5.0); Alkaline Phosphatase 86 U/L (46-116); Anion Gap 13.7; Aspartate Amino Transferase 16 U/L (15-37); BUN Creatinine Ratio 19.8; Bilirubin Total 0.5 mg/dL (0.2-1.0); Calcium 8.8 mg/dL (8.5-10.1); Carbon Dioxide 26.5 mmol/L (21.0-32.0); Chloride 105 mmol/L (98-107); Estimated GFR (African America >60 (>=60 mL/min/1.73m^2); Estimated GFR (Non-African Ame >60 (>=60 mL/min/1.73m^2); Globulin 3.3 g/dL; Glucose 195 mg/dL (74-106); Potassium 4.2 mmol/L (3.5-5.1); Sodium 141 mmol/L (136-145); Total Protein 6.9 g/dL (6.4-8.2)
[2024-07-31 10:26] LABS: Thyroid Stimulating Hormone 1.254 uIU/mL (0.358-3.740); Troponin I High Sensitivity <4.0 pg/mL (4.0-76.1)
== END 2024-07-31 11:20 | disposition home or self-care (01) ==
PROVIDERS: Emergency Provider Emergency Medicine; PCP Family Medicine
DX: R00.2 Palpitations (principal); F17.200 Nicotine dependence, unspecified, uncomplicated
CPT/HCPCS: 36415; 80053; 84436; 84443; 84484; 85025; 93005; 99284

== ENCOUNTER 2024-09-05 07:13 | Outpatient (OUT) | payer BC, SELFPAY ==
--- OUTSIDE RECORDS SUMMARY | 2024-09-05 07:20 | XMS_ITS | CCD ---
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 hospitalization. Performed By: #### D DIM #### [facility] [address] [place] [address] Dr. Ishan Cage PROF CHEM 8 (BAS METB)on Anion gap [Moles/Vol] 11.9 mmol/L Normal [facility] Comment on above: Performed By: #### B SHANDRA ALEJANDRA #### [facility] [address] [place] [address] Dr. Ishan Cage Calcium [Mass/Vol] 8.9 mg/dL Normal 8.5-10.1 [facility] Comment on above: Performed By: #### B SHANDRA ALEJANDRA #### [facility] [address] [place] [address] Dr. Ishan Cage Chloride [Moles/Vol] 107 mmol/L Normal 98-107 [facility] Comment on above: Performed By: #### B SHANDRA ALEJANDRA #### [facility] [address] [place] [address] Dr. Ishan Cage CO2 [Moles/Vol] 24.7 mmol/L Normal 21.0-32.0 [facility] Comment on above: Performed By: #### B SHANDRA ALEJANDRA #### [facility] [address] [place] [address] Dr. Ishan Cage Creatinine [Mass/Vol] 0.86 mg/dL Normal 0.70-1.30 [facility] Comment on above: Performed By: #### SHANDRA Chirinos MP #### [facility] [address] [place] [address] [address] Ishan Cage EGFR-AF NEW ZEALANDER >60 Normal >=60 [facility] Comment on above: Performed By: #### B SHANDRA ALEJANDRA #### [facility] [address] [place] [address] [address] Ishan Cage EGFR-NON AF [place] ZEALANDER >60 Normal >=60 [facility] Comment on above: Performed By: #### B SHANDRA ALEJANDRA #### [facility] [address] [place] [address] Dr. Ishan Cage Glucose [Mass/Vol] 129 mg/dL Critically high 74-106 [facility] Comment on above: Performed By: #### B SHANDRA ALEJANDRA #### [facility] [address] [place] [address] [address] Ishan Cage Potassium [Moles/Vol] 3.6 mmol/L Normal 3.5-5.1 [facility] Comment on above: Performed By: #### SHANDRA Chirinos MP #### [facility] [address] [place] [address] Dr. Ishan Cage Sodium [Moles/Vol] 140 mmol/L Normal 136-145 [facility] Comment on above: Performed By: #### SHANDRA Chirinos MP #### [facility] [address] [place] [address] [address] Ishan Cage Urea nitrogen [Mass/Vol] 13.0 mg/dL Normal 7.0-18.0 [facility] Comment on above: Performed By: #### SHANDRA Chirinos MP #### [facility] [address] [place] [address] Dr. Ishan Cage Urea nitrogen/Creatini ne [Mass ratio] 15.1 mg/mg Normal [facility] Comment on above: Performed By: #### SHANDRA Chirinos MP #### [facility] [address] [place] [address] Dr. Ishan Cage XR CHEST 2 Von [...] JOSE MARTIN DOYLE Date: 2022-04-22 00:17 Normal [facility] NM STRESS ONLY SINGLEon 01-01 NM STRESS ONLY SINGLE Patient: EMEKA PANIAGUA Exam Date: 01/20/2022 : 1980 Gender:M Ordering : DR REJI BENAVIDEZ . Admission #: [id number] Family : Order #: [id number] CLICK HERE TO VIEW EXAM RADIOLOGY REPORT [...] Yuan M.D. on 03/05/2022 at 09:24 Normal [facility] Coding Summary.on 06-29-2020 Coding Summary. CODING DATE: 020 FINAL [facility] STATUS: Home (Routine DC) PAYOR: Medicaid EA DESCRIPTION 0391 LEVEL II PATHOLOGY TESTS ADMIT [...] Rizzo Date Saved: 06/29/2020 09:24 am Normal [facility] Provider Letter FTMCon 06-19 Provider Letter [facility] Reji Benavidez, [facility] [place] [address] Re: EMEKA PANIAGUA Date of : 1980 Thank you for your referral of Emeka Paniagua who was seen on consultation on June 14, 2020, for lesion on tip of nose, possible furuncle. I have enclosed my consultation note for your review. A biopsy is planned. I will be happy to follow Emeka should his symptoms persist. Sincerely, Morro Morley MD General Surgery Normal [facility] Ambulatory Clinical Summaryo n 06-14-2020 Ambulatory Clinical Summary {[id number] }[id number] Normal [facility] General Surgery Office/Clini c Noteon 06-14-2020 [...] History Cardiac arrest: Mother. Hypertension: Mother. Normal [facility] Comment on above: Result Comment: Elec tronically Signed By: TOM WARREN, Morro Rico\Date and Time Signed: 06/14/20 17:15 EST Physician Referralon 020 Physician Referral [id number]: 127 Normal [facility] Ambulatory Clinical Summaryo n 06-12-2020 Ambulatory Clinical Summary {[id number] }[id number] Normal [facility] General Surgery Office/Clini c Noteon 06-12-2020 General [...] available Patient Education Exercise to Lose Weight, Kcgo-qo-Romm Problem List/Past Medical History Ongoing ED (erectile [...] History Cardiac arrest: Mother. Hypertension: Mother. Normal [facility] Comment on above: Result Comment: Elec tronically Signed By: TOM WARREN, Morro Palacio.raymond\Date and Time Signed: 06/12/20 15:12 EST Patient [...] Document Reviewed: 08/21/2011 ExitCare? Patient Information ?2013 [employer]. [facility] Encounters Encounter Date Encounter Type Care Provider Facility Start: 09-01-2024 End: [facility] Start: 05-03-2023 ambulatory Reji Benavidez Facility: [facility] Start: 12-21-2022 End: 12-30-2022 ambulatory [...] . Facility: Payers Date Payer Category Payer Unknown [id number] 2023 Self-pay 1980 Unknown [id number] 2.16.84 [id number] 1980 Unknown [id number] 2.16.84 [id number] 1980 Unknown [id number] 2.16.84 [id number] 1980 Unknown [id number] 2.16.84 [id number] 1980 Unknown [id number] 2.16.84 [id number] 1980 Unknown [id number] 2.16.84 [id number] 1980 Unknown [id number] 2.16.84 [id number] 1959 Unknown [id number] 1959 Unknown [id number] Unknown [id number] Unknown Unknown [id number] 2.16.8 [id number] Progress note 09-01-2024 Note Date & Type Note Facility 09-01-2024 Note [facility] Note Reason for cardiology consult: Palpitation, chest tightness, shortness of breath Chief Complaint: Palpitation, chest tightness, shortness of breath HPI: Emeka Paniagua is a 44 y.o. male with history of hypertension, hyperlipidemia, prediabetes and smoking. Patient presented to [facility] emergency room on 07/31/2024 with heart palpitations which started the day before and was going on on and off. He states that while he was driving he felt fluttering in his heart and then after that he started feeling upper chest tightness and shortness of breath and some dizziness and it lasted about 2 hours before he went to the emergency room. He reports that his blood pressure was also high. He states that the first time he had similar symptoms was in September 2021 and at that time his blood pressure was significantly high and he was started on lisinopril and metoprolol. He thinks that at that time he had an echo and stress test and they were okay. He states since then he had occasions of similar symptoms but brief and sporadic till the last week of July when he started having them more frequently and lasting long time. He was seen by his PCP Dr. Pramod jimenes of this month and he increased his metoprolol to 50 mg twice daily instead of 25 mg daily and also started him on Xanax and Effexor and he feels better. He is physically very active and his job is significantly physical. He denies chest discomfort with that. He admits occasional shortness of breath with overexertion. Denies orthopnea or paroxysmal nocturnal dyspnea or legs edema or leg discomfort on exertion He denies snoring or being sleepy. He feels tired during the daytime however he states that he sleeps only about 5 hours He is a smoker 1 pack/day for about 20 years. Denies alcohol or illicit drugs Regarding family history his mother had ME at age of 47 and 2 uncles has CAD and CABG, his father had kidney transplant Cardiology ROS: GENERAL: Denies fever, chills, night sweats, weight loss. HEENT: Denies changes in vision, photophobia, changes in hearing, epistaxis, oral bleeding. CARDIOVASCULAR: Cardiac symptoms discussed above in the history RESPIRATORY: Denies SOB, coughing, wheezing GI: Denies abdominal pain, nausea/vomiting, heartburn, melena/hematochezia. RENAL: Denies dysuria, hematuria, flank pain. MSK: Denies muscle weakness/pain, arthralgias/joint pain. NEUROLOGIC: Denies LOC, weakness, numbness, headaches. SKIN: Denies abnormal rashes or bleeding. PSYCH: Denies significant anxiety, depression, sleep disturbances. Past Medical History He has a past medical history of Hypertension. Surgical History He has a past surgical history that includes Ragland tooth extraction. Social History He reports that he has been smoking cigarettes. He has never used smokeless tobacco. He reports that he does not currently use alcohol. No history on file for drug use. Family History Family History Problem Relation Name Age of Onset Heart attack Mother 47 Kidney Transplant Father Allergies Patient has no known allergies. Medications Current Outpatient Medications: ALPRAZolam (Xanax) 0.25 mg tablet, Take 1 tablet by mouth Twice daily at 6am and 6pm., Disp: , Rfl: lisinopril 20 mg tablet, Take 1 tablet by mouth in the morning., Disp: , Rfl: metoprolol tartrate (Lopressor) 50 mg tablet, Take 1 tablet by mouth Twice daily at 6am and 6pm., Disp: , Rfl: venlafaxine XR (Effexor-XR) 75 mg 24 hr capsule, 75 mg in the morning., Disp: , Rfl: Last Recorded Vitals Visit Vitals BP 125/85 (BP Location: Left arm, Patient Position: Sitting) Pulse 64 Ht 1.829 m (6') Wt 113 kg (250 lb) SpO2 96% BMI 33.91 kg/m??? Smoking Status Every Day BSA 2.4 m??? Physical Examination: GENERAL: alert and oriented x3, well developed, in no acute distress. HEAD: atraumatic, normocephalic. EYES: ERIN, EOMI. NECK: trachea midline, no JVD present, no carotid bruits present. CARDIAC: S1, S2 present. RRR. No murmur, rubs, or gallops. RESPIRATORY: CTAB, no increased effort of breathing, no rales, rhonchi, or wheezing. ABDOMEN: soft, nontender, nondistended. EXTREMITIES: no lower extremity edema. No rash/skin discoloration present. NEURO: strength/sensation equal and symmetric in bilateral upper and lower extremities. PSYCH: appropriate mood, affect, and judgement. Labs: 07/31/2024 White blood count 12.8, hemoglobin 16, hematocrit 47, platelets 227 Sodium 141, potassium 4.2, BUN 17, creatinine 0.86, GFR above 60, glucose 195, calcium 8.8 Total bilirubin 0.5, AST 16, ALT 36, alk phos 86, total protein 6.9, albumin 3.6 TSH 1.254, free T48.9 High-sensitivity troponin less than 4 01/26/2024 HbA1c 6.1% Insulin level 21.5 which is normal Triglyceride 172, cholesterol 216, LDL 150, HDL 32 Last Images: EKG 07/31/2024 showed normal sinus rhythm, heart rate 63 bpm, normal EKG Assessm (more content not included)... [facility] Summary Purpose Family History No Family History Records FoundNo Family History Records FoundNo Family History Records FoundNo Family History Records Found Advance Directives No Advanced Directives Records FoundNo Advanced Directives Records FoundNo Advanced Directives Records FoundNo Advanced Directives Records Found Additional Source Comments (unrecognized sect ion and content) No Status Records FoundNo Status Records FoundNo Status Records FoundNo Status Records Found INFORMATION SOURCE (unrecogn ized section and content) DATE CREATED AUTHOR 06/29/2020 [employer] [facility] DATE CREATED AUTHOR AUTHOR'S ORGANIZ ATION 01/08/2023 [facility] DATE CREATED AUTHOR AUTHOR'S ORGANIZ ATION 08/13/2024 [facility] DATE CREATED AUTHOR AUTHOR'S ORGANIZ ATION 09/03/2024 [facility] FOR RECORDS PERTAINING TO PATIENTS WHO [...] BE BASED ON THE PRIMARY CLINICAL RECORDS. [employer] [facility]. provides no warranty or guarantee of the accuracy or completeness of information in this document.
[2024-09-05 08:09] LABS: Estimated Average Glucose 148 mg/dL; Glycohemoglobin A1C 6.8 % (4.5-6.2)
[2024-09-05 08:14] LABS: Alanine Aminotransferase 34 U/L (16-63); Aspartate Amino Transferase 17 U/L (15-37); Chol HDL Ratio 6.4; Cholesterol 193 mg/dL (<=200); HDL Cholesterol 30 mg/dL (40-60); Triglycerides 217 mg/dL (<=150); VLDL CHOLESTEROL 43.4 mg/dL
== END 2024-09-05 07:14 | disposition home or self-care (01) ==
LOC: LAB 07:18
PROVIDERS: PCP Family Medicine; Visit Provider Internal Medicine Cardiovascular Disease
DX: R73.03 Prediabetes (principal); E78.5 Hyperlipidemia, unspecified
CPT/HCPCS: 36415; 80061; 83036; 84450; 84460

== ENCOUNTER 2025-01-12 07:04 | Outpatient (OUT) | payer SELFPAY ==
--- OUTSIDE RECORDS SUMMARY | 2024-11-10 09:30 | XMS_ITS ---
Author Organization The [facility] in [place] Address [address] [place] [address] Care Team Providers Care Avian Keeper Name Role Phone Master Benavidez Primary Care Provider Allergies No Known Allergies REASON FOR VISIT anxiety- doesn't feel like the Effexor is helping, Left upper back/arm pain- needs a note that states it is workers comp so that way they will see him [facility], Discuss Nicotine patches- ready to stop, Cardio discussed pre-diabetes with him and possibly starting metformin, Refills on meds, Hashad dry mouth and sweating a lot Medications Medication SIG (Take, Route, Frequency, Duration) Notes Start Date End Date Status Venlafaxine HCl ER 75 MG 2 capsule with food Orally Once a day for 90 days Active hydrOXYzine HCl 25 MG 1-2 tablet as need ed Orally qid for 10 days PRN 07/31/2024 Active Lisinopril 20 MG 1 tablet Orally Once a day for 90 days Active Nicotine 21 MG/24HR 1 patch to skin Transdermal Once a day 11/10/2024 Active Metoprolol Tartrate 50 MG 1 tablet Orall y Twice a day for 30 days Active ALPRAZolam 0.25 MG TAKE 1 TABLET BY VÍCTOR TH TWICE A DAY for 30 11/10/2024 Active Social History Tobacco Use: Social History Observation Description Date Details (start date - stop date) Current Smoker 08/02/1995 - NA Tobacco Use/Smoking Question Answer Notes Patient is a current smoker When did you start smoking? 08/02/1995 How often do you smoke cigarettes? every day How many cigarettes a day do you smoke? 21-30 Additional Findings: Tobacco User Heavy cigarett e smoker (20-39 cigs/day) Vital Signs Blood pressure systolic 142 mm Hg 11/11/19 25 Blood pressure diastolic 78 mm Hg 025 Height 72 in 11/10/2024 Weight 256.4 lbs 11/10/2024 BMI 34.77 kg/m2 11/10/2024 Encounters Encounter Location Date Provider Diagnosis [facility] [address] [place] [address] 11/10/2024 Master Benavidez Hypertension I10 and Anxiety F41.9 Assessments Encounter Date Diagnosis (ICD Code) Assessment Notes Treatment Notes Treatment Clinical Notes Section Notes 11/10/2024 Hypertension (ICD-10 - I10) 11/10/2024 Anxiety (ICD-10 - F41.9) Plan Of Treatment Medication Medication Name Sig Start Date Stop Date Notes Venlafaxine HCl ER 75 MG 2 capsule with food Orally Once a day for 90 days Nicotine 21 MG/24HR 1 patch to skin Cole sdermal Once a day 11/10/2024 ALPRAZolam 0.25 MG TAKE 1 TABLET BY VÍCTOR TWICE A DAY for 30 11/10/2024 Next Appt Details Provider Name:Master Nick Benavidez, 10:30:00 AM, [address] [place], [address], Progress Notes * Emeka PANIAGUA ADOB:1980 (44 yo M)Acc No.[id number]:11/10/2024 Progress Note Patient: Emeka HERNANDEZ Provider: Gilbert Benavidez ([facility])MD :1980 A ge:44 Y S ex:Male Date:11/10/2024 Address:[address] , [place] Check In:01:33 PM ESTCheck O ut:01:58 PM EST Subjective: * Chief Complaints: * a nxiety- doesn't feel like the Effexor is helpingLeft upper back/arm pain- needs a note that states it is workers comp so [facility]- ready to stopCardio discussed pre-diabetes with him and possibly starting metforminRefills on medsHas had dry mouth and sweating a lot * ROS: E ENT: hearing changes d enies. v isual changes d enies.?non-healing mouth sores d enies. s wollen glands or neck lumps d enies. h oarseness d enies. s ore throat d enies. d ifficulty swallowing d enies. n ose bleeds d enies. n max congestion d enies. e ar ache d enies. e ar discharge?denies. r inging in ears d enies. l ight sensitivity d enies. e ye pain d enies. b lurring d enies. e ye irritation d enies. d ouble vision d enies.?vision loss d enies. G eneral/Constitutional: Sweats: D enies. F atigue d enies. S leep problems d enies. A norexia d enies. M alaise d enies. W eight loss d enies.?Fatigue or Weakness d enies. F ever or Chills d enies. C ardiovascular: Shortness of Breath w/lying flat d enies. L ightheadedness/dizziness d enies. C hest tightness/ heavy pressure d enies. S welling of legs, ankles, or feet d enies. W aking up with shortness of breath d enies. C hest pain denies. P alpitations d enies. W eight gain d enies. R espiratory: Chronic or frequent cough d enies. C oughing up blood?denies. D ifficulty breathing d enies. P roductive cough d enies. S noring?denies. S hortness of breath that awakens from sleep (PND) d enies. C hest pain d enies. S putum production d enies. W heezing d enies. M usculoskeletal: Joint pain d enies. J oint Fluid d enies. B ack pain d enies. K nee pain d enies. N deisy pain d enies. J oint Stiffness d enies. M uscle cramps d enies. W eakness of muscles d enies. A rthritis d enies. M uscle aches d enies. P ain in shoulder(s) d enies. S wollen joints d enies. * Active Problem List Z00.00 Well adult Modified On:07/14/2023/U Status:confirmed I10 Hypertension Modified On:09/14/2023U Status:confirmed R00.2 Palpitations Modified On:09/27/2023/U Status:confirmed E78.00 Hypercholesteremia Modified On:01/27/2024/U Status:confirmed F41.9 Anxiety Modified On:07/31/2024/U Status:confirmed G47.00 Insomnia Modified On:08/11/2024 Status:confirmed * Medical History: * Surgical History: N ose Surgery [place] teeth removal * Hospitalization/Major Diagno stic Procedure: D enies Past Hospitalization * Family History: F ather: alive, Kidney Transplant. M other: , Heart Attack. B rother(s): alive. S ister(s): alive. S on(s): alive. D lou(s): alive. 1 brother(s) , 1 sister(s) - healthy. 1 son(s) , 1 daughter(s) - healthy. . * Social History: T obacco Use: T obacco Use/Smoking P atient is a c urrent smoker W hen did you start smoking? 0 08/02/1995 H ow often do you smoke cigarettes? e very day H ow many cigarettes a day do you smoke? 2 1-30 A dditional Findings: Tobacco User H eavy cigarette smoker (20-39 cigs/day) * Medications: T akingALPRAZolam 0.25 MG Tablet TAKE 1 TABLET BY MOUTH TWICE A DAY hydrOXYzine HCl 25 MG Tablet 1-2 tablet as needed Orally qid , Notes to Pharmacist: PRNLisinopril 20 MG Tablet 1 tablet Orally Once a day Metoprolol Tartrate 50 MG Tablet 1 tablet Orally Twice a day Venlafaxine HCl ER 75 MG Capsule Extended Release 24 Hour 1 capsule with food Orally Once a day Medication List reviewed and reconciled with the patientTaking ALPRAZolam 0.25 MG Tablet TAKE 1 TABLET BY MOUTH TWICE A DAY Taking hydrOXYzine HCl 25 MG Tablet 1-2 tablet as needed Orally qid , Notes to Pharmacist: PRNTaking Lisinopril 20 MG Tablet 1 tablet Orally Once a day Taking Metoprolol Tartrate 50 MG Tablet 1 tablet Orally Twice a day Taking Venlafaxine HCl ER 75 MG Capsule Extended Release 24 Hour 1 capsule with food Orally Once a day Medication List reviewed and reconciled with the patient * Allergies: N .K.D.A.no[Allergies Verified] Objective: * Vitals: W t:256.4lbs, Ht: 72 in, BP:142/78mm Hg, BMI:34.77Index, Ht-cm: 182.88 cm, Wt-k.3 kg. * Examination: P hysical Exam: GENERAL: w ell developed, well nourished, in no acute distress. HEAD: n ormocephalic/atraumatic. EYES: p upils equal, round and reactive to light, conjunctivae and sclerae normal. EARS: n o deformity or lesion of external ear, canals and TM appear normal bilaterally, TM's intact, not inflamed with normal light reflex, hearing grossly normal to conversational speech. NOSE: n o deformity, discharge, inflammation, or lesions.? MOUTH: m ucous membranes moist, normal oropharynx and posterior pharynx without lesions or exudates, tongue normal, dentition normal. NECK: n deisy supple, no masses or palpable cervical nodes, trachea midline, thyroid without nodules, masses, tenderness, or enlargement. CHEST: n o chest wall deformity, no chest wall tenderness.? LUNGS: n ormal respiratory effort and clear to auscultation, no wheezes, rales, or rhonchi, good air exchange. CARDIO: r egular rate and rhythm, normal S1 and S2, nor murmur, rub, or gallop. PULSES: n ormal capillary refill. ABDOMEN: s oft, non-distended, non-tender, no masses. MUSCULOSKELETAL: n o deformity or scoliosis noted, normal range of motion, joints normal, no erythema, edema, effusion, or ecchymosis. EXTREMITY: n o clubbing, cyanosis, edema, or deformity with normal ROM in both upper and lower bilateral extremities. NEUROLOGIC: g rossly normal. SKIN: n o rashes, ulcerations, or suspicious lesions. LYMPH NODES: n o cervical adenopathy, nodes normal. MENTAL STATUS: a lert and oriented x3, normal mood and affect. Assessment: * Assessment: 1. H ypertension - I10 (Primary) 2 . A nxiety - F41.9 Plan: * Treatment: * Procedure Codes: * Preventive Medicine: Screenings/Counseling: B MA ACTION PLAN Above Normal BMI Follow-up D ietary management education, guidance, and counseling * * Sign off status: Completed Visit Status: C HK (Check Out) true * Provider: Gilbert Benavidez ([facility])MD Date: 11/10/2024 Generated for Printi ng/Faxing/eTransmitting on: 01/12/2025 07:09 AM EDT History and Physical Notes * Examination Category Sub-Category Detail Notes Category Not es Physical Exam GENERAL: well developed, well nourished, in no acute distress HEAD: normocephalic/atraum atic EYES: pupils equal, round and reactive to light, conjunctivae and sclerae normal EARS: no deformity or lesi on of external ear, canals and TM appear normal bilaterally, TM's intact, not inflamed with normal light reflex, hearing grossly normal to conversational speech NOSE: no deformity, discha rge, inflammation, or lesions MOUTH: mucous membranes leanne st, normal oropharynx and posterior pharynx without lesions or exudates, tongue normal, dentition normal NECK: neck supple, no mass es or palpable cervical nodes, trachea midline, thyroid without nodules, masses, tenderness, or enlargement CHEST: no chest wall deform ity, no chest wall tenderness LUNGS: normal respiratory e ffort and clear to auscultation, no wheezes, rales, or rhonchi, good air exchange CARDIO: regular rate and rhy thm, normal S1 and S2, nor murmur, rub, or gallop PULSES: normal capillary ref ill ABDOMEN: soft, non-distended, non-tender, no masses RECTAL: MUSCULOSKELETAL: no deformity or scol iosis noted, normal range of motion, joints normal, no erythema, edema, effusion, or ecchymosis EXTREMITY: no clubbing, cyanosi s, edema, or deformity with normal ROM in both upper and lower bilateral extremities NEUROLOGIC: grossly normal SKIN: no rashes, ulceratio ns, or suspicious lesions LYMPH NODES: no cervical adenopat hy, nodes normal MENTAL STATUS: alert and oriented x 3, normal mood and affect
--- OUTSIDE RECORDS SUMMARY | 2025-01-11 05:45 | XMS_ITS ---
Author Organization The [facility] in [place] Address [address] [place] [address] Care Team Providers Care Banquet Line Cook Name Role Phone Master Benavidez Primary Care Provider [phone] Allergies No Known Allergies Results Component Value Reference Range Notes GLUCOSE - IN OFFICE FINGERST ICK w/MONITOR (Not yet reviewed by provider) Interpretation: Performing Lab: Notes/Report: GLU 341 74 - 106 MG/DL REASON FOR VISIT Certified Nutritionist kim pt checked for DM-Sep 2024 A1C was 6.8- having dry mouth Medications Medication SIG (Take, Route, Frequency, Duration) Notes Start Date End Date Status ALPRAZolam 0.25 MG TAKE 1 TABLET BY VÍCTOR TWICE A DAY for 30 01/06/2025 Active Lisinopril 20 MG 1 tablet Orally Once a day for 90 days Active Metoprolol Tartrate 50 MG 1 tablet Orall y Twice a day for 30 days Active Venlafaxine HCl ER 75 MG 2 capsule with food Orally Once a day for 90 days Active Atorvastatin Calcium 40 MG Oral for 30 Days Active Social History Tobacco Use: Social History [...] User Heavy cigarett e smoker (20-39 cigs/day) Problems Problem Type SNOMED Code ICD Code Onset Dates Problem Status W/U Status Risk Notes Problem Diabetes (E11.9) Active confirmed Vital Signs Blood pressure systolic 130 mm Hg 01/12/20 25 Blood pressure diastolic 74 mm Hg 025 Height 72 in 01/11/2025 Weight 245.8 lbs 01/11/2025 BMI 33.33 kg/m2 01/11/2025 Encounters Encounter Location Date Provider Diagnosis [facility] [address] [place] [address] 01/11/2025 Master Benavidez Dry mouth R68.2 and Diabetes E11.9 Assessments Encounter Date Diagnosis (ICD Code) Assessment Notes Treatment Notes Treatment Clinical Notes Section Notes 01/11/2025 Dry mouth (ICD-10 - R68.2) 01/11/2025 Diabetes (ICD-10 - E11.9) Plan Of Treatment Pending Test Test Name Order Date HEMOGLOBIN A1C (GLYCO) 01/11/2025 LIPID PANEL (CHOL/TRIG/HDL/LDL) 01/12/20 25 GLUCOSE - IN OFFICE FINGERSTICK w/MONITO R 01/11/2025 CMP (COMP MET WHALEY) w/eGFR CKD-EPI 2024 CBC WITH DIFF 01/11/2025 Next Appt Details Provider Name:Master Benavidez, 10:30:00 AM, [address] [place], [address], Progress Notes * Emeka PANIAGUA ADOB:1980 (44 yo M)Acc No.[id number]:01/11/2025 UNLOCKED PROGRESS NOTE Progress Note Patient: Emeka HERNANDEZ Savana Provider: Gilbert Benavidez ([facility])MD :1980 A ge:44 Y S ex:Male Date:01/11/2025 Address:[facility] [address] [place], [place] Check In:09:47 AM ESTCheck O ut:10:27 AM EST Subjective: * Chief Complaints: * 1 . Certified Nutritionist wants pt checked for DM-Sep 2024 A1C was 6.8- having dry mouth. * HPI: G eneral: Dsed sugar - over 300. * ROS: E ENT: hearing changes d [...] enies. S wollen joints d enies. * Medical History: I mpotence, Essential hypertension, Palpitations, Chest pain, Low back pain, Heart palpitations, Keratoacanthoma of nose. * Surgical History: N ose Surgery , [place] teeth removal . * Hospitalization/Major Diagno stic Procedure: D enblaze Past Hospitalization. * Family History: F ather: alive, Kidney Transplant. M other: , Heart Attack. B rother(s): alive. S ister(s): alive. S on(s): alive. D aughter(s): alive. 1 brother(s) , 1 sister(s) - [...] cigarette smoker (20-39 cigs/day) * Medications: T aking ALPRAZolam 0.25 MG Tablet TAKE 1 TABLET BY MOUTH TWICE A DAY , Taking Atorvastatin Calcium 40 MG Tablet Oral , Taking Lisinopril 20 MG Tablet 1 tablet Orally Once a day , Taking Metoprolol Tartrate 50 MG Tablet 1 tablet Orally Twice a day , Taking Venlafaxine HCl ER 75 MG Capsule Extended Release 24 Hour 2 capsule with food Orally Once a day , Discontinued hydrOXYzine HCl 25 MG Tablet 1-2 tablet as needed Orally qid , Notes to Pharmacist: PRN, Discontinued Nicotine 21 MG/24HR Patch 24 Hour 1 patch to skin Transdermal Once a day , Medication List reviewed and reconciled with the patient * Allergies: N .K.D.A. Objective: * Vitals: W t:245.8lbs, Ht: 72 in, BP:130/74mm Hg, BMI:33.33Index, Ht-cm: 182.88 cm, Wt-k.49 kg. * Examination: P hysical Exam: GENERAL: [...] mood and affect. Assessment: * Assessment: 1. D ry mouth - R68.2 (Primary) 2 . D iabetes - E11.9 Plan: * Treatment: 2. D iabetes L AB: HEMOGLOBIN A1C (GLYCO) L AB: LIPID PANEL (CHOL/TRIG/HDL/LDL) L AB: CMP (COMP MET WHALEY) w/eGFR CKD-EPI L AB: CBC WITH DIFF * Labs: * L ab: GLUCOSE - IN OFFICE FINGERSTICK w/MONITOR (Collection Date & Time - 01/11/2025) Value Reference Range G CHRISTINE 341 74 - 106 MG/DL * Procedure Codes: 8 2962 GLUCOSE,BLOOD MONITORING * * Electronic signature of Master Benavidez MD, [id number] on 01/12/2025 at 07:10 AM EDT Sign off status: Pending Visit Status: Blaine STROUD (Check Out) * Provider: Gilbert Benavidez ([facility]), MD Date: 0 01/11/2025 Generated for Printi ng/Faxing/eTransmitting on: 0 01/12/2025 07:10 AM EDT History and Physical Notes * HPI (History of Present Illness) Category Sub-Category Detail Notes Category Not es General Dsed sugar - ov er 300 Examination Category Sub-Category Detail Notes Category Not [...]
--- OUTSIDE RECORDS SUMMARY | 2025-01-11 06:26 | XMS_ITS ---
Author Organization [facility] in [place] Address [address] [place] [address] Care Team Providers Care Poker Prop Player Name Role Phone Master Benavidez Primary Care Provider REASON FOR VISIT glucose supplies Medications Medication SIG (Take, Route, Fr equency, Duration) Notes Start Date End Date Status Blood Glucose Meter -- Use meter to reema tor glucose daily. DX E11.9 for 365 days 01/11/2025 Act khushbu Lancets 33G - Use 1 lancet to poke finger to monitor glucose dialy. DX E11.9 for 90 days 01/11/2025 Active Test Strips - Use 1 strip via mete r to monitor glucose daily. DX E11.9 for 90 days 01/11/2025 Active Encounters Encounter Location Date Provider Diagnosis [facility] [address] [place] [address] 01/11/2025 Master Benavidez Plan Of Treatment Medication Medication Name Sig Start Date Stop Date Notes Blood Glucose Meter -- Use meter to reema tor glucose daily. DX E11.9 for 365 days 01/11/2025 Lancets 33G - Use 1 lancet to poke finger to monitor glucose dialy. DX E11.9 for 90 days 01/11/2025 Test Strips - Use 1 strip via mete r to monitor glucose daily. DX E11.9 for 90 days 01/11/2025 Next Appt Details Provider Name:Master Benavidez, 10:30:00 AM, [address] [place], [address], Progress Notes * Abril PANIAGUAy ADOB:1980 (44 yo M)Acc No.[id number]:01/11/2025 Patient: Emeka HERNANDEZ :1980 A ge:44 Y S ex:Male Address:[facility] [address] [place], [address] * Refills Start Blood Glucose Meter --, --, 1, Use meter to monitor glucose daily. DX E11.9, 365 days, Refills=0 Start Test Strips -, -, 100, Use 1 strip via meter to monitor glucose daily. DX E11.9, 90 days, Refills=3 Start Lancets 33G Miscellaneous, -, 100, Use 1 lancet to poke finger to monitor glucose dialy. DX E11.9, 90 days, Refills=3 * true * Date: Generated for Yue swan/Lilibeth/Karolitting on: 0 01/12/2025 07:09 AM EDT
--- OUTSIDE RECORDS SUMMARY | 2025-01-12 07:10 | XMS_ITS | Patient Health Record ---
Author Organization [facility] in [place] Address [address] [place] [address] Care Team Providers Care Marketing Technology Coordinator Name Role Phone Master Gamble Primary Care Provider REJI GAMBLE Unavailable [phone] Allergies No Known Allergies Results Component Value Reference Range Notes ECG 12 lead Reviewed date:08/06/2024 05:12:22 PM Interpretation: Performing Lab: Notes/Report: Source Facility: [address] [address] Electrocardiograph Report Signed Patient: EMEKA PANIAGUA MR#: [id number] : 1980 Acct:[id number] Age/Sex: 43 / M ADM Date: 07/31/24 Loc: ER Attending Dr: Ordering Physician: Caryn Anderson D.O. Date of Service: 07/31/24 Procedure(s): ECG 12 lead Accession Number(s): [id number] cc: [facility] Test Date: 2024-07-31 Pat Name: EMEKA PANIAGUA Department: Room: - Gender: Male Occasional Babysitter: : 1980 Requested By: REJI GAMBLE Order Number: [id number] Reading MD: DOM MACKENZIE Measurements Intervals Clear Rate: 63 P: 52 TN: 166 QRS: 53 QRSD: 88 T: 43 QT: 388 QTc: 395 Interpretive Statements 1100 Sinus rhythm 9110 normal ECG Compared to ECG 09/07/2023 23:52:20 No significant changes Electronically Signed On 08-03-2024 16:22:37 EST by DOM MACKENZIE Dictated By: Dom Mackenzie D.O. Signed By: 08/03/241622 DD/ 0939 TD/TT: Flight Engineer Manager: The [address] [address] Electrocardiograph Report Signed Patient: EMEKA PANIAGUA MR#: [id number] : 1980 Acct:[id number] Age/Sex: 43 / M ADM Date: 07/31/24 Loc: ER Attending Dr: Ordering Physician: Caryn Anderson D.O. 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 Signed By: 08/03/241622 DD/ 0939 TD/TT: Flight Engineer Manager: Troponin I High Sensitivity Reviewed date:07/31/2024 08:21:34 PM Interpretation: Performing Lab: Notes/Report: [facility] , Troponin I High Sensitivity <4.0 4.0-76.1 pg/mL CUT-OFF POINTS HAVE BEEN ESTABLISHED BASED ON THE FOURTH UNIVERSAL DEFINITION OF MYOCARDIAL INFARCTION. THE UPPER REFERENCE LIMIT (URL) OF TROPONIN, DEFINED THE 99TH PERCENTILE OF cTnI DISTRIBUTION IN A REFERENCE POPULATION, HAS BEEN CONFIRMED THE DECISION THRESHOLD FOR MS DIAGNOSIS. 99TH PERCENTILE = 76.2 PG/ML NOTE: HIGH-SENSITIVITY TROPONIN ASSAY IS NOT INTENDED TO BE USED IN ISOLATION BUT SHOULD BE INTERPRETED IN CONJUNCTION WITH OTHER DIAGNOSTIC AND CLINICAL INFORMATION. Performing Lab: see note ML - [facility] LB TSH Reviewed date:07/31/2024 08:21:34 PM Interpretation: Performing Lab: Notes/Report: [facility] , Thyroid Stimulating Hormone 1.254 0.358-3.740 uIU/mL Performing Lab: see note ML - [facility] LB T4 Reviewed date:07/31/2024 08:21:34 PM Interpretation: Performing Lab: Notes/Report: [facility] , T4 Thyroxine 8.90 4.50-12.10 ug/dL Performing Lab: see note ML - [facility] LB PROF 14(COMP METB) Reviewed date:07/31/2024 08:21:34 PM Interpretation: Performing Lab: Notes/Report: [facility] , Sodium 141 136-145 mmol/L Potassium 4.2 3.5-5.1 mmol/L Chloride 105 98-107 mmol/L Carbon Dioxide 26.5 21.0-32.0 mmol/L Anion Gap 13.7 Glucose 195 74-106 mg/dL Blood Urea Nitrogen 17.0 7.0-18.0 mg/dL Creatinine 0.86 0.70-1.30 mg/dL Estimated GFR ( Yessica >60 >=60 mL/min/1.73m 2 Estimated GFR (Non- Morenita >60 >=60 mL/min/1.73m 2 BUN Creatinine Ratio 19.8 Calcium 8.8 8.5-10.1 mg/dL Bilirubin Total 0.5 0.2-1.0 mg/dL Aspartate Amino Transferase 16 15-37 U/L Alanine Aminotransferase 36 16-63 U/L Alkaline Phosphatase 86 46-116 U/L Total Protein 6.9 6.4-8.2 g/dL Albumin Level 3.6 3.4-5.0 g/dL Globulin 3.3 Albumin Globulin Ratio 1.1 Performing Lab: see note ML - [facility] LB CBC AUTO DIFF Reviewed date:07/31/2024 08:21:34 PM Interpretation: Performing Lab: Notes/Report: [facility] , White Blood Count 12.8 4.0-11.0 10 3/uL Red Blood Count 5.36 4.70-6.10 10 6/uL Hemoglobin 16.4 14.0-18.0 g/dL Hematocrit 47.1 42.0-54.0 % Mean Corpuscular Volume 87.9 80.0-94.0 fL Mean Corpuscular Hemoglobin 30.6 25.9-34.0 pg Mean Corpuscular HGB Conc 34.8 29.9-35.2 g/dL Red Cell Distribution Width 12.1 11.0-15.0 % Platelet Count 227 150-450 10 3/uL Mean Platelet Volume 10.1 9.5-13.5 fL Neutrophils Percent Auto 71.0 43.0-75.0 % Lymphocytes Percent Auto 21.9 20.5-60.0 % Monocytes Percent Auto 4.9 1.7-12.0 % Eosinophils Percent Auto 1.3 0.9-7.0 % Basophils Percent Auto 0.4 0.2-2.0 % Immature Granulocytes Pct Auto 0.5 0.0-0.5 % Neutrophils Absolute Auto 9.1 1.4-6.5 10 3/uL Lymphocytes Absolute Auto 2.8 1.2-3.8 10 3/uL Monocytes Absolute Auto 0.6 0.3-0.8 10 3/uL Eosinophils Absolute Auto 0.2 0.0-0.7 10 3/uL Basophils Absolute Auto 0.1 0.0-0.1 10 3/uL Immature Granulocytes Abs Auto 0.06 0.00-0.03 10 3/uL Performing Lab: see note ML - [facility] TSH Reviewed date:01/26/2024 07:32:08 PM Interpretation: Performing Lab: Notes/Report: [facility] , Thyroid Stimulating Hormone 1.654 0.358-3.740 uIU/mL Performing Lab: see note ML - [facility] LB T4 Reviewed date:01/26/2024 07:32:08 PM Interpretation: Performing Lab: Notes/Report: [facility] , T4 Thyroxine 10.60 4.50-12.10 ug/dL Performing Lab: see note - [facility] LB PSA SCREENING Reviewed date:01/26/2024 07:32:08 PM Interpretation: Performing Lab: Notes/Report: [facility] , Prostate Specific Antigen Scrn 1.85 <=4.00 ng/mL Performing Lab: see note - [facility] LB PROF 14(COMP METB) Reviewed date:01/26/2024 07:32:08 PM Interpretation: Performing Lab: Notes/Report: [facility] , Sodium 140 136-145 mmol/L Potassium 4.2 3.5-5.1 mmol/L Chloride 104 98-107 mmol/L Carbon Dioxide 28.1 21.0-32.0 mmol/L Anion Gap 12.1 Glucose 138 74-106 mg/dL Blood Urea Nitrogen 13.0 7.0-18.0 mg/dL Creatinine 0.80 0.70-1.30 mg/dL Estimated GFR ( Yessica >60 >=60 Estimated GFR (Non- Morenita >60 >=60 BUN Creatinine Ratio 16.2 Calcium 8.5 8.5-10.1 mg/dL Bilirubin Total 0.6 0.2-1.0 mg/dL Aspartate Amino Transferase 21 15-37 U/L Alanine Aminotransferase 42 16-63 U/L Alkaline Phosphatase 82 46-116 U/L Total Protein 7.1 6.4-8.2 g/dL Albumin Level 3.8 3.4-5.0 g/dL Globulin 3.3 Albumin Globulin Ratio 1.2 Performing Lab: see note ML - [facility] LB LIPID PROFILE Reviewed date:01/26/2024 07:32:08 PM Interpretation: Performing Lab: Notes/Report: [facility] , Triglycerides 172 <=150 mg/dL Cholesterol 216 <=200 mg/dL HDL Cholesterol 32 40-60 mg/dL > or =60 mg/dl - LOW CARDIOVASCULAR RISK <40 mg/dl - HIGH CARDIOVASCULAR RISK LDL Cholesterol Calculated 150.0 <100 mg/dl OPTIMAL 100-129 mg/dl NEAR OR ABOVE OPTIMAL 130-159 mg/dl BORDERLINE HIGH 160-189 mg/dl HIGH >190 mg/dl VERY HIGH VLDL CHOLESTEROL 34.4 Chol HDL Ratio 6.8 3.3 - 4.4 LOW RISK 4.4 - 7.1 AVERAGE RISK 7.1 - 11.0 MODERATE RISK >11.0 HIGH RISK Performing Lab: see note ML - [facility] LB GLYCOHEMOGLOBIN A1C Reviewed date:01/26/2024 07:32:08 PM Interpretation: Performing Lab: Notes/Report: [facility] , Glycohemoglobin A1C 6.1 4.5-6.2 % ADA RECOMMENDED LIMIT 4.0 - 6.0 ADA THERAPEUTIC TARGET < 7.0 ACTION SUGGESTED > 7.0 Estimated Average Glucose 128 Performing Lab: see note ML - [facility] LB FREE T3 Reviewed date:01/26/2024 07:32:08 PM Interpretation: Performing Lab: Notes/Report: [facility] , Free T3 3.41 2.18-3.98 pg/mL Performing Lab: see note ML - [facility] LB CBC AUTO DIFF Reviewed date:01/26/2024 07:32:08 PM Interpretation: Performing Lab: Notes/Report: [facility] , White Blood Count 11.5 4.0-11.0 10 3/uL Red Blood Count 5.20 4.70-6.10 10 6/uL Hemoglobin 15.4 14.0-18.0 g/dL Hematocrit 44.6 42.0-54.0 % Mean Corpuscular Volume 85.8 80.0-94.0 fL Mean Corpuscular Hemoglobin 29.6 25.9-34.0 pg Mean Corpuscular HGB Conc 34.5 29.9-35.2 g/dL Red Cell Distribution Width 12.0 11.0-15.0 % Platelet Count 208 150-450 10 3/uL Mean Platelet Volume 10.1 9.5-13.5 fL Neutrophils Percent Auto 71.0 43.0-75.0 % Lymphocytes Percent Auto 22.1 20.5-60.0 % Monocytes Percent Auto 4.5 1.7-12.0 % Eosinophils Percent Auto 1.5 0.9-7.0 % Basophils Percent Auto 0.4 0.2-2.0 % Immature Granulocytes Pct Auto 0.5 0.0-0.5 % Neutrophils Absolute Auto 8.1 1.4-6.5 10 3/uL Lymphocytes Absolute Auto 2.5 1.2-3.8 10 3/uL Monocytes Absolute Auto 0.5 0.3-0.8 10 3/uL Eosinophils Absolute Auto 0.2 0.0-0.7 10 3/uL Basophils Absolute Auto 0.1 0.0-0.1 10 3/uL Immature Granulocytes Abs Auto 0.06 0.00-0.03 10 3/uL Performing Lab: see note ML - [facility] LB GLUCOSE - IN OFFICE FINGERST ICK w/MONITOR (Not yet reviewed by provider) Interpretation: Performing Lab: Notes/Report: GLU 341 74 - 106 MG/DL SGPT Reviewed date:09/05/2024 02:13:57 PM Interpretation: Performing Lab: Notes/Report: [facility] , Alanine Aminotransferase 34 16-63 U/L Performing Lab: see note ML - [facility] LB SGOT Reviewed date:09/05/2024 02:13:57 PM Interpretation: Performing Lab: Notes/Report: [facility] , Aspartate Amino Transferase 17 15-37 U/L Performing Lab: see note ML - [facility] LIPID PROFILE Reviewed date:09/05/2024 02:13:57 PM Interpretation: Performing Lab: Notes/Report: [facility] , Triglycerides 217 <=150 mg/dL Cholesterol 193 <=200 mg/dL HDL Cholesterol 30 40-60 mg/dL > or =60 mg/dl - LOW CARDIOVASCULAR RISK <40 mg/dl - HIGH CARDIOVASCULAR RISK LDL Cholesterol Calculated 120.0 <100 mg/dl OPTIMAL 100-129 mg/dl NEAR OR ABOVE OPTIMAL 130-159 mg/dl BORDERLINE HIGH 160-189 mg/dl HIGH >190 mg/dl VERY HIGH VLDL CHOLESTEROL 43.4 Chol HDL Ratio 6.4 3.3 - 4.4 LOW RISK 4.4 - 7.1 AVERAGE RISK 7.1 - 11.0 MODERATE RISK >11.0 HIGH RISK Performing Lab: see note ML - [facility] GLYCOHEMOGLOBIN A1C Reviewed date:09/05/2024 02:13:57 PM Interpretation: Performing Lab: Notes/Report: [facility] , Glycohemoglobin A1C 6.8 4.5-6.2 % ADA RECOMMENDED LIMIT 4.0 - 6.0 ADA THERAPEUTIC TARGET < 7.0 ACTION SUGGESTED > 7.0 Estimated Average Glucose 148 Performing Lab: see note ML - [facility] INSULIN Reviewed date:01/27/2024 09:48:16 PM Interpretation: Performing Lab: Notes/Report: [facility] , Insulin 21.5 2.6-24.9 uIU/mL Performed at: [facility] [address] [id number] Concrete Sculptor: Raghu White PhD, Phone: [phone] Performing Lab: see note - [facility] LB Reason For Referral No Information Medications Medication SIG (Take, Route, Frequency, Duration) Notes Start Date End Date Status Venlafaxine HCl ER 75 MG 2 capsule with food Orally Once a day for 90 days Active Atorvastatin Calcium 40 MG Oral for 30 Days Active Blood Glucose Meter -- Use meter to [facility] tor glucose daily. DX E11.9 for 365 days 01/11/2025 Active ALPRAZolam 0.25 MG TAKE 1 TABLET BY VÍCTOR TH TWICE A DAY for 30 01/06/2025 Active Lisinopril 20 MG 1 tablet Orally Once a day for 90 days Active Lancets 33G - Use 1 lancet to poke finger to monitor glucose dialy. DX E11.9 for 90 days 01/11/2025 Active Metoprolol Tartrate 50 MG 1 tablet Orall y Twice a day for 30 days Active Test Strips - Use 1 strip via mete r to monitor glucose daily. DX E11.9 for 90 days 01/11/2025 Active Social History Tobacco Use: Social History [...] User Heavy cigarett e smoker (20-39 cigs/day) Alcohol Screen (Audit-C) Question Answer Notes Did you have a drink contain ing alcohol in the past year? Yes How often did you have 6 or more drinks on one occasion in the past year? Never (0 point) How many drinks did you have on a typical day when you were drinking in the past year? 3 or 4 drinks (1 point) How often did you have a dri nk containing alcohol in the past year? Less than monthly (1 point) Points 2 Interpretation Negative AUDIT-C (Standard) Question Answer Notes Did you have a drink containing alcohol in the p ast year? No Points 0 Interpretation Negative Problems Problem Type SNOMED Code ICD Code Onset Dates Problem Status W/U Status Risk Notes Problem Palpitations (16198737) Palpitations (R00.2) Active confirmed Problem Hypertension (37452942) Hypertension (I10) Active confirmed Problem Anxiety (24031075) Anxiety (F41.9) Active confi rmed Problem Insomnia (308756392) Insomnia (G47.00) Active c onfirmed Problem Well adult (879923586) Well adult (Z00.00) Activ e confirmed Problem hypercholesterolemia (disorder) (65405313) Hypercholesteremia (E78.00) Active confirmed Problem Type II diabetes mellitus without complication (920881291) Diabetes (E11.9) Active confirmed Vital Signs Blood pressure diastolic 74 mm Hg 01/11/2025 Height 72 in 01/11/2025 Blood pressure systolic 130 mm Hg 01/11/2025 Weight 245.8 lbs 01/11/2025 BMI 33.33 kg/m2 01/11/2025 Encounters Encounter Location Date Provider Diagnosis [id number] [place] [address] 01/11/2025 Master Hoy Dry mouth R68.2 and Diabetes E11.9 [address] [place] [address] 01/24/2024 REJI HOY Well adult Z00.00 [address] [place] [address] 07/31/2024 Master Hoy Palpitations R00.2 a nd Anxiety F41.[address] [address] 08/11/2024 Master Hoy Anxiety F41.9 and In somnia G47.[address] [address] 11/10/2024 Master Hoy Hypertension I10 and Anxiety F41.9 [address] [place] [address] 08/23/2024 Master Hoy Gastroenteritis K52. 9 [facility] [address] [place] [facility] [place] [address] 01/26/2024 REJI HOY Hypercholesteremia E 78.00 [facility] [address] [place] [facility] [place] [address] 2024 Master Hoy Anxiety F41.[address] [address] 2024 Master Hoy [address] [place] [address] 08/15/2024 Master Pramod [facility] [address] [facility] [place] [address] 08/18/2024 Master Gamble Anxiety F41.9 [facility] [address] [facility] [place] [address] 08/18/2024 Master Pramod [facility] [address] [facility] [place] [address] 09/01/2024 Master Pramod [facility] [address] [facility] [place] [address] 09/14/2024 Master Pramod [facility] [address] [facility] [place] [address] 09/14/2024 Master Gamble Anxiety F41.9 [facility] [address] [facility] [place] [address] 01/11/2025 Master Gamble Assessments Encounter Date Diagnosis (ICD Code) Assessment Notes Treatment Notes Treatment Clinical Notes Section Notes 01/24/2024 Well adult (ICD-10 - Z00.00) 07/31/2024 Palpitations (ICD-10 - R00.2) 07/31/2024 Anxiety (ICD-10 - F41.9) 08/11/2024 Anxiety (ICD-10 - F41.9) 08/11/2024 Insomnia (ICD-10 - G47.00) 08/23/2024 Gastroenteritis (ICD-10 - K52.9) Get plenty of rest. Stay hydrated by sucking on ice chips or taking small sips of water. You can also try drinking clear soda, clear broths or noncaffeinated sports drinks. Stop eating solid foods for a few hours to let your stomach settle. East back into eating by eating bland, azgp-dn-uillhv foods like crackers, toast, gelatin, bananas, rice and chicken. Try to avoid foods/substances including dairy products, caffeine, alcohol, nicotine and fatty or highly seasoned foods. Medications such as ibuprofen or tylenol can make your stomach more upset, so use sparingly if at all. Also avoid bkws-ipd-xjrusta anti-diarrheal medications because it can make it harder for your body to eliminate the virus. Not completely b eter - shouild be better in 3 days 11/10/2024 Hypertension (ICD-10 - I10) 11/10/2024 Anxiety (ICD-10 - F41.9) 01/11/2025 Dry mouth (ICD-10 - R68.2) 01/11/2025 Diabetes (ICD-10 - E11.9) 01/26/2024 Hypercholesteremia (ICD-10 - E78.00) 2024 Anxiety (ICD-10 - F41.9) 08/18/2024 Anxiety (ICD-10 - F41.9) 09/14/2024 Anxiety (ICD-10 - F41.9) Plan Of Treatment Pending Test Test Name Order Date CMP (COMPLETE METABOLIC PANEL) 3 CMP (COMPLETE METABOLIC PANEL) 4 HEMOGLOBIN A1C (GLYCO) 07/14/2023 HEMOGLOBIN A1C (GLYCO) 01/24/2024 HEMOGLOBIN A1C (GLYCO) 01/11/2025 INSULIN, TOTAL 01/24/2024 LIPID PANEL (CHOL/TRIG/HDL/LDL) 01/24/20 24 LIPID PANEL (CHOL/TRIG/HDL/LDL) 01/12/20 25 LIPID PANEL (CHOL/TRIG/HDL/LDL) 07/14/20 23 CBC WITH DIFF 07/14/2023 CBC WITH DIFF 01/24/2024 PSA, PROSTATE-SPECIFIC ANTIGEN 3 GLUCOSE - IN OFFICE FINGERSTICK w/MONITO R 01/11/2025 PSA, TOTAL 01/24/2024 STOOL OCCULT BLOOD 01/24/2024 LIPID PROFILE 01/26/2024 LIVER PROFILE 01/26/2024 THYROID PANEL (T4/TSH/FREE T3) 4 THYROID PANEL (T4/TSH/FREE T3) 3 CMP (COMP MET WHALEY) w/eGFR CKD-EPI 2024 CBC WITH DIFF 01/11/2025 Next Appt Details Provider Name:Master Gamble, 10:30:00 AM, [address] [place], [address], Insurance Providers Payer Name Payer Address Payer Phone Subscriber Number Group Number Insured Name Patient Relationship to Insured Coverage Start Date Coverage End Date [employer] [place] [employer] [address] [place] [address] [phone] [id number] Emeka Paniagua Self - patient is the insured Medical (General) History Medical History History ICD Code Impotence N52.9 Essential hypertension I10 Palpitations R00.2 Chest pain R07.9 Low back pain M54.5 Heart palpitations R00.2 Keratoacanthoma of nose L85.8 Surgical History Surgery Date(Month/Year) [place] teeth removal Nose Surgery
--- OUTSIDE RECORDS SUMMARY | 2025-01-12 07:10 | XMS_ITS | Clinical Summary ---
Author Organization [facility] Address [address] [place] [address] Care Team Providers Care Trimmer Tailer Name Role Phone Stevie Benavidez MD Primary Care Provider Allergies No known active allergies Medications metoprolol tartrate (Lopressor) 50 mg tablet Take 1 tablet by mouth Twice daily at 6am and 6pm. 08/16/19 25 Active lisinopril 20 mg tablet Take 1 tablet by mouth in the morning. 01/24/20 24 Active venlafaxine XR (Effexor-XR) 75 mg 24 hr capsule 75 mg in the morning. 08/16/19 25 Active ALPRAZolam (Xanax) 0.25 mg tablet Take 1 tablet by mouth Twice daily at 6am and 6pm. 08/18/19 25 Active atorvastatin (Lipitor) 40 mg tabletIndications:Pure hypercholesterolemia Take 1 tablet (40 mg) by mouth in the morning. 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 0 09/01/2024 Precordial pain 09/01/2024 Dyspnea on exertion 09/01/2024 Palpitations 09/01/2024 Hyperlipidemia 09/01/2024 Prediabetes 09/01/2024 Essential hypertension 09/01/2024 Tobacco abuse 09/01/2024 Class 1 obesity due to exces s calories without serious comorbidity with body mass index (BMI) of 33.0 to 33.9 in adult 09/01/2024 Family History Medical History Relation Name Comments Kidney Transplant Father Heart attack Mother Relation Name Status Comments Father Mother Social History Tobacco Use Types Packs/Day Years Used Date Smoking Tobacco: Every Day Cigarettes Smokeless Tobacco: Never Tobacco Cessation:Ready to Q uit: Not Asked; Counseling Given: Not Answered Alcohol Use Standard Drinks/Week Comments Not Currently 0 (1 standard drink = 0.6 oz pur e alcohol) [place] Safety & Environment Answer Date Rec orded Fear of Current or Ex-Partner Not on file Emotionally Abused Not on file 09/23/2023 Physically Abused Not on file 09/23/2023 Sexually Abused Not on file 09/23/2023 Physically or Sexually Abused Not on file Sex and Gender Information Value Date Recorded Sex Assigned at Not on file Legal Sex Male 10:41 PM EDT Gender Identity Not on file Sexual Orientation Not on file Last Filed Vital Signs Vital Sign Reading Time Taken Comments Blood Pressure 130/76 10/02/2024 1:33 PM EST Pulse 91 10/02/2024 1:33 PM EST Temperature - - Respiratory Rate - - Oxygen Saturation 94% 10/02/2024 1:33 PM EST Inhaled Oxygen Concentration - - Weight 116 kg (256 lb) 10/02/2024 1:33 PM EST Height 182.9 cm (6') 10/02/2024 1:33 PM EST Body Mass Index 34.72 10/02/2024 1:33 PM EST Plan of Treatment Health Maintenance Due Date Last Done Comments Diabetes: Hemoglobin A1C 1980 Diabetes: Retinopathy Screening 1990 Depression Screening 1992 Varicella Vaccines (1 of 2 - 13+ 2-dose series) 1993 Diabetes: Urine Protein Screening 1999 Hepatitis B Vaccines (1 of 3 - 19+ 3-dose series) 1999 Pneumococcal Vaccine: Pediatrics (0 to 5 Years) and At-Risk Patients (6 to 64 Years) (1 of 2 - PCV) 1999 Adult Tetanus 2002 COVID-19 Vaccine ( season) 2024 02/19/2021, 01/14/2021, 01/05/2021, Additional history exists Influenza Vaccine (Season Ended) 2025 Zoster Vaccines (1 of 2) 2030 HIB Vaccines Aged Out No longer eligi ble based on patient's age to complete this topic HPV Vaccines Aged Out No longer eligi ble based on patient's age to complete this topic IPV Vaccines Aged Out No longer eligi ble based on patient's age to complete this topic Meningococcal B Vaccine Aged Out No l onger eligible based on patient's age to complete this topic Meningococcal Vaccine Aged Out No nghia alma eligible based on patient's age to complete this topic Rotavirus Vaccines Aged Out No longer eligible based on patient's age to complete this topic Care Teams Trimmer Tailer Relationship Specialty Start Date End Date Stevie Benavidez MD [address] [facility] [place] [address] PCP - General 08/14/24
--- OUTSIDE RECORDS SUMMARY | 2025-01-12 07:10 | XMS_ITS | Referral Summary ---
Author Organization [facility] Address [address] [place] [address] Care Team Providers Care Hydrant Setter Name Role Phone Stevie Benavidez MD Primary Care Provider [phone] Allergies No known active allergies Medications metoprolol [...] of 33.0 to 33.9 in adult 09/01/2024 Social History Tobacco Use Types Packs/Day Years [...] 10/02/2024 1:33 PM EST Plan of Treatment Not on file Care Teams Hydrant Setter Relationship Specialty Start Date End Date Stevie Benavidez MD [address] [facility] [place] [address] PCP - General 08/14/24
--- OUTSIDE RECORDS SUMMARY | 2025-01-12 07:10 | XMS_ITS | CCD ---
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 AF MONGOLIAN >60 Normal >=60 [facility] Comment on above: Performed By: #### B JUSTYN, CMADM #### [facility] [address] [address] [address] Ishan Cage Glucose [Mass/Vol] 129 mg/dL Critically high 74-106 [facility] Comment on above: Performed By: #### B JUSTYN, CMADM #### [facility] [address] [address] [address] Ishan Cage Potassium [Moles/Vol] 3.6 mmol/L Normal 3.5-5.1 [facility] Comment on above: Performed By: #### B JUSTYN, CMADM #### [facility] [address] [address] [address] Ishan Cage Sodium [Moles/Vol] 140 mmol/L Normal 136-145 [facility] Comment on above: Performed By: #### B JUSTYN, SHANDRA #### [facility] [address] [address] [address] Ishan Cage Urea nitrogen [Mass/Vol] 13.0 mg/dL Normal 7.0-18.0 [facility] Comment on above: Performed By: #### B JUSTYN, CASIMIRODM #### [facility] [address] [address] [address] Ishan Cage Urea nitrogen/Creatini ne [Mass ratio] 15.1 mg/mg Normal [facility] Comment on above: Performed By: #### B JUSTYN, SHANDRA #### [facility] [address] [address] [address] Ishan Cage XR CHEST 2 Von [...] MARTIN DOYLE Date: 2022-04-22 00:17 Normal [facility] NM STRESS ONLY SINGLEon 01-01 NM STRESS ONLY SINGLE Patient: EMEKA PANIAGUA Exam Date: 01/20/2022 : 1980 Gender:M Ordering : DR REJI BENAVIDEZ . Admission #: [id number] Family : Order #: [id number] CLICK HERE TO VIEW EXAM RADIOLOGY REPORT [...] return for stress imaging. Dictated by: Hung uYan M.D. on 03/05/2022 at 09:19 Approved by: Hung Yuan M.D. on 03/05/2022 at 09:24 Normal [facility] Coding Summary.on 06-29-2020 Coding Summary. 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 However, the narrative phrase printed from the coding software may appear abbreviated, or result in slightly different terminology. Coded By: Betsy Rizzo Date Saved: 06/29/2020 09:24 am Normal [facility] Provider Letter FTon 06-19 Provider Letter [facility] Reji Benavidez, [address] [facility] [place] [address] Re: EMEKA PANIAGUA Date of : 1980 Thank you for your referral of Emeka Paniagua who was seen on consultation on June 14, 2020, for lesion on tip of nose, possible furuncle. I have enclosed my consultation note for your review. A biopsy is planned. I will be happy to follow Emeka should his symptoms persist. Sincerely, Morro Morley MD General Surgery Normal [facility] Ambulatory Clinical Summaryo n 06-14-2020 Ambulatory Clinical Summary {[id number] }CD:[id number] Normal [facility] General Surgery Office/Clini c Noteon 06-14-2020 General [...] History Cardiac arrest: Mother. Hypertension: Mother. Normal [facility] Comment on above: Result Comment: Elec tronically Signed By: TOM WARREN, Morro Palacio.br\Date and Time Signed: 06/14/20 17:15 EST Physician Referralon 020 Physician Referral [id number]: [address] [facility] Ambulatory Clinical Summaryo n 06-12-2020 Ambulatory Clinical Summary {[id number] }CD:[id number] Normal [facility] General Surgery Office/Clini c Noteon 06-12-2020 General [...] available Patient Education Exercise to Lose Weight, Fbzj-hz-Ucrq Problem List/Past Medical History Ongoing ED (erectile [...] Family History Cardiac arrest: Mother. Hypertension: Mother. [facility] Comment on above: Result Comment: Juancho castanon Signed By: TOM WARREN, Morro Rico\Date and [...] Document Reviewed: 08/21/2011 ExitCare? Patient Information ?[address] [employer] [facility] Encounters Encounter Date Encounter Type Care Provider Facility Start: 10-02-2024 End: 10-02-[address] [facility] Start: 09-28-2024 End: 09-28-2024 ambulatory Thom PRECIADO Facility:[facility] Start: 09-01-2024 End: 09-01-[address] [facility] Start: 05-03-2023 ambulatory Reji Benavidez Facility: [facility] Start: 12-21-2022 End: 12-30-2022 ambulatory SERGE [...] Facility: Payers Date Payer Category Payer Unknown [id number] 2023 Self-pay 1980 Unknown [id number] 2.16.84 [id number] 1980 Unknown [id number] 2.16.84 [id number] 1980 Unknown [id number] 2.16.84 [id number] 1980 Unknown [id number] .16.84 [id number] 1980 Unknown [id number] 2.16.84 [id number] 1980 Unknown [id number] 2.16.84 [id number] 1980 Unknown [id number] 2.16.84 [id number] 1959 Unknown [id number] 1959 Unknown [id number] Unknown [id number] Unknown Unknown [id number] 2.16.8 [id number] Progress note 10-02-2024 Note Date & Type Note Facility 10-02-2024 Note [facility] Note Reason for cardiology visit: Follow-up on palpitation, chest tightness, shortness of breath Chief Complaint: Palpitation, chest tightness, shortness of breath HPI: 10/02/2024 Patient is here today for follow-up visit. He states that he continues to have the palpitation most of the time. Also he has chest pain most of the time however it gets worse with activities and same for his exertional dyspnea. He denies orthopnea or paroxysmal nocturnal dyspnea or legs edema or leg discomfort on exertion He still smoke about three-quarter pack per day 09/01/2024 Emeka Paniagua is a 44 y.o. male with history of hypertension, hyperlipidemia, prediabetes and smoking. Patient presented to [facility] emergency room on 07/31/2024 with heart palpitations [...] drugs Regarding family history his mother had MT at age of 47 and 2 uncles has CAD and CABG, his father had kidney transplant Review of systems All systems were reviewed and they were negative except for the positive findings noted above in the history Past Medical History He has a past medical history of Hypertension. Surgical History He has a past surgical history that includes [place] tooth extraction. Social History He reports that [...] Rfl: Last Recorded Vitals Visit Vitals BP 130/76 (BP Location: Right arm, Patient Position: Sitting) Pulse 91 Ht 1.829 m (6') Wt 116 kg (256 lb) SpO2 94% BMI 34.72 kg/m??? Smoking Status Every Day BSA 2.43 m??? Physical Examination: GENERAL: alert and oriented [...] PSYCH: appropriate mood, affect, and judgement. Labs: 09/05/2024 HbA1c 6.8% AST 17, ALT 34 Triglyceride 217, cholesterol 193, HDL 30, LDL 120 07/31/2024 White blood count 12.8, hemoglobin 16, [...] rhythm, heart rate 63 bpm, normal EKG (more content not included)... [facility] Progress note 09-01-2024 Note Date & Type Note Facility 09-01-2024 Note [facility] Note Reason for cardiology consult: Palpitation, chest tightness, shortness of breath Chief Complaint: Palpitation, chest tightness, shortness of breath HPI: Emeka Paniagua is a 44 y.o. male with history of hypertension, hyperlipidemia, prediabetes and smoking. Patient presented to [facility] emergency room on 07/31/2024 with heart palpitations [...] drugs Regarding family history his mother had MT at age of 47 and 2 uncles [...] has a past surgical history that includes [place] tooth extraction. Social History He reports that [...] normal EKG Assessm (more content not included)... [facility] Summary Purpose Family History No Family History [...] section and content) DATE CREATED AUTHOR [facility]29/2020 [facility] DATE CREATED AUTHOR AUTHOR'S ORGANIZ ATION 01/08/2023 [facility] DATE CREATED AUTHOR AUTHOR'S ORGANIZ ATION 08/13/2024 [facility] DATE CREATED AUTHOR AUTHOR'S ORGANIZ ATION 09/30/2024 [facility] DATE CREATED AUTHOR AUTHOR'S ORGANIZ ATION 10/03/2024 [facility] FOR RECORDS PERTAINING TO PATIENTS WHO ARE [...] BE BASED ON THE PRIMARY CLINICAL RECORDS. DNS:[facility]. provides no warranty or guarantee of the accuracy or completeness of information in this document.
[2025-01-12 07:27] LABS: Basophils Absolute Auto 0.1 10^3/uL (0.0-0.1); Basophils Percent Auto 0.3 % (0.2-2.0); Eosinophils Absolute Auto 0.2 10^3/uL (0.0-0.7); Eosinophils Percent Auto 1.3 % (0.9-7.0); Hematocrit 47.7 % (42.0-54.0); Immature Granulocytes Abs Auto 0.06 10^3/uL (0.00-0.03); Immature Granulocytes Pct Auto 0.4 % (0.0-0.5); Lymphocytes Absolute Auto 3.6 10^3/uL (1.2-3.8); Lymphocytes Percent Auto 22.4 % (20.5-60.0); Mean Corpuscular HGB Conc 35.6 g/dL (29.9-35.2); Mean Corpuscular Hemoglobin 30.9 pg (25.9-34.0); Mean Corpuscular Volume 86.6 fL (80.0-94.0); Mean Platelet Volume 10.3 fL (9.5-13.5); Monocytes Absolute Auto 0.9 10^3/uL (0.3-0.8); Monocytes Percent Auto 5.4 % (1.7-12.0); Neutrophils Absolute Auto 11.3 10^3/uL (1.4-6.5); Neutrophils Percent Auto 70.2 % (43.0-75.0); Platelet Count 198 10^3/uL (150-450); Red Blood Count 5.51 10^6/uL (4.70-6.10); Red Cell Distribution Width 11.9 % (11.0-15.0); White Blood Count 16.1 10^3/uL (4.0-11.0)
[2025-01-12 07:46] LABS: Estimated Average Glucose 243 mg/dL; Glycohemoglobin A1C 10.1 % (4.5-6.2)
[2025-01-12 07:55] LABS: Alanine Aminotransferase 40 U/L (16-63); Albumin Globulin Ratio 1.2; Albumin Level 3.7 g/dL (3.4-5.0); Alkaline Phosphatase 118 U/L (46-116); Anion Gap 11.5; Aspartate Amino Transferase 14 U/L (15-37); BUN Creatinine Ratio 18.4; Bilirubin Total 0.5 mg/dL (0.2-1.0); Calcium 8.9 mg/dL (8.5-10.1); Carbon Dioxide 30.7 mmol/L (21.0-32.0); Chloride 103 mmol/L (98-107); Chol HDL Ratio 6.3; Cholesterol 189 mg/dL (<=200); Estimated GFR (African America >60 (>=60 mL/min/1.73m^2); Estimated GFR (Non-African Ame >60 (>=60 mL/min/1.73m^2); Globulin 3.1 g/dL; Glucose 270 mg/dL (74-106); HDL Cholesterol 30 mg/dL (40-60); Potassium 4.2 mmol/L (3.5-5.1); Sodium 141 mmol/L (136-145); Total Protein 6.8 g/dL (6.4-8.2); Triglycerides 598 mg/dL (<=150); VLDL CHOLESTEROL 119.6 mg/dL
[2025-01-12 07:58] LABS: LDL Cholesterol Direct 88 mg/dL
== END 2025-01-12 07:05 | disposition home or self-care (01) ==
LOC: LAB 07:08
PROVIDERS: PCP Family Medicine; Visit Provider Family Medicine
DX: R68.2 Dry mouth, unspecified (principal); E11.9 Type 2 diabetes mellitus without complications; E78.5 Hyperlipidemia, unspecified; I10 Essential (primary) hypertension; R53.83 Other fatigue
CPT/HCPCS: 36415; 80053; 80061; 83036; 83721; 85025

== ENCOUNTER 2025-06-04 10:53 | Outpatient (OUT) | payer OTHER, SELFPAY ==
--- OUTSIDE RECORDS SUMMARY | 2024-08-08 05:30 | XMS_ITS ---
Author Organization [facility] [place] Address [address] [place] [address] Care Team Providers Care Gate Person Name Role Phone Master Benavidez Primary Care Provider [phone] REASON FOR VISIT anxiety Encounters Encounter Location Date Provider Diagnosis [facility] [address] [place] [address] 08/08/2024 Master Benavidez Plan Of Treatment No Information Progress Notes * MONICAEmeka YUEN ADOB:1980 (44 yo M)Acc No.[id number]:08/08/2024 UNLOCKED PROGRESS NOTE Progress Note Patient: Emeka HERNANDEZ :?Stevie Benavidez (YOON), MDDOB:1980???Age: 43 Y???Sex:MaleDate:08/08/2024Phone:[phone]:[address], [address], [place], [id number] Subjective: * Chief Complaints: * 1 . Anxiety. * Medical History: Objective: * Vitals: Assessment: Plan: * Treatment: * * Electronic signature of Master Benavidez MD, [phone] on 06/04/2025 at 10:59 AM EST Sign off status: PendingVisit Status:?N/S N/C (No Show/No Charge) * Provider: Gilbert Benavidez MD (TTC) Date: 0 08/08/2024 Generated for Printing/Faxing/eTransmitting on:?06/04/2025 10:59 AM EST
--- OUTSIDE RECORDS SUMMARY | 2025-02-23 04:15 | XMS_ITS ---
Author Organization [facility] [place] Address [address] [place] [address] Care Team Providers Care Bank Representative Name Role Phone Master Benavidez Primary Care Provider REASON FOR VISIT meds Encounters Encounter Location Date Provider Diagnosis [facility] [address] [place] [address] 02/23/2025 Master Benavidez Plan Of Treatment No Information Progress Notes * ARCELIAAbril Trany ADOB:1980 (44 yo M)Acc No.[id number]:02/23/2025 UNLOCKED PROGRESS NOTE Progress Note Patient: Emeka HERNANDEZ :?Stevie Benavidez (YOON), MDDOB:1980???Age: 44 Y???Sex:MaleDate:02/23/2025Phone:[phone]:[address], [address], [place], [id number] Subjective: * Chief Complaints: * 1 . Meds. * Medical History: Objective: * Vitals: Assessment: Plan: * Treatment: * * Electronic signature of Master Benavidez MD, [id number] on 06/04/2025 at 10:58 AM EST Sign off status: PendingVisit Status:?N/S N/C (No Show/No Charge) * Provider: Gilbert Benavidez MD (TTC) Date: 0 02/23/2025 Generated for Printing/Faxing/eTransmitting on:?06/04/2025 10:58 AM EST
--- OUTSIDE RECORDS SUMMARY | 2025-06-04 10:57 | XMS_ITS | Patient Health Record ---
Author Organization [facility] in [place] Address [address] [place] [address] Care Team Providers Care Allergist Immunologist Name Role Phone Master Gamble Primary Care Provider [phone] Allergies No Known Allergies Results Component Value Reference Range Notes CBC AUTO DIFF Reviewed date:07/31/2024 08:21:34 PM Interpretation: Performing Lab: Notes/Report: [facility] , White Blood Count 12.8 4.0-11.0 10 3/uL Red Blood Count5.364.70-6.10 10 6/uWPhxjkfljax16.414.0-18.0 g/qSAqknnjpipc86.1 42.0-54.0 %Mean Corpuscular Ygwnpr09.980.0-94.0 fLMean Corpuscular Hemoglobin 30.625.9-34.0 pgMean Corpuscular HGB Conc34.829.9-35.2 g/dLRed Cell Distribution Width12.111.0-15.0 %Platelet Omtba186707-886 10 3/uLMean Platelet Eflsug06.19.5- 13.5 fLNeutrophils Percent Auto71.043.0-75.0 %Lymphocytes Percent Auto21.920.5- 60.0 %Monocytes Percent Auto4.91.7-12.0 %Eosinophils Percent Auto1.30.9-7.0 % Basophils Percent Auto0.40.2-2.0 %Immature Granulocytes Pct Auto0.50.0-0.5 % Neutrophils Absolute Auto9.11.4-6.5 10 3/uLLymphocytes Absolute Auto2.81.2-3.8 10 3/uLMonocytes Absolute Auto0.60.3-0.8 10 3/uLEosinophils Absolute Auto0.20.0- 0.7 10 3/uLBasophils Absolute Auto0.10.0-0.1 10 3/uLImmature Granulocytes Abs Auto0.060.00-0.03 10 3/uLPerforming Lab:see noteML - [facility] LBECG 12 lead Reviewed date:08/06/2024 05:12:22 PM Interpretation: Performing Lab: Notes/Report: Source Facility: [facility]-[address] [place] [address] [place] [address] Electrocardiograph Report Signed Patient: EMEKA PANIAGUA MR#: [id number] : 1980 Acct:[id number] Age/Sex: 43 / M ADM Date: 07/31/24 Loc: ER Attending Dr: Ordering Physician: Caryn Anderson D.O. 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 Signed By: 08/03/24 1623 DD/ 0939 TD/TT: Ocean Forwarder:LIPID PROFILE Reviewed date:09/05/2024 02:13:57 PM Interpretation: Performing Lab: Notes/Report: [facility] ,Grdzkwtjudmjv679<=150 mg/iQZbcvgdojccc832<=200 mg/dLHDL Rrnqdcutkah0088-35 mg/dL > or =60 mg/dl - LOW CARDIOVASCULAR RISK <40 mg/dl - HIGH CARDIOVASCULAR RISK LDL Cholesterol Lrngejuzen061.0 <100 mg/dl OPTIMAL 100-129 mg/dl NEAR OR ABOVE OPTIMAL 130-159 mg/dl BORDERLINE HIGH 160-189 mg/dl HIGH >190 mg/dl VERY HIGH VLDL CVAIAEZJIWK51.4Chol HDL Ratio6.4 3.3 - 4.4 LOW RISK 4.4 - 7.1 AVERAGE RISK 7.1 - 11.0 MODERATE RISK >11.0 HIGH RISK Performing Lab:see note - [facility] LBSGOT Reviewed date:09/05/2024 02:13:57 PM Interpretation: Performing Lab: Notes/Report: [facility] ,Aspartate Amino Pstcsxwmkhl8712-33 U/LPerforming Lab:see note - [facility] LBSGPT Reviewed date:09/05/2024 02:13:57 PM Interpretation: Performing Lab: Notes/Report: [facility] ,Alanine Hpoahsexbkrkcxhp8723-77 U/LPerforming Lab:see note - [facility] LBGLYCOHEMOGLOBIN A1C Reviewed date:09/05/2024 02:13:57 PM Interpretation: Performing Lab: Notes/Report: [facility] ,Glycohemoglobin A1C6.84.5-6.2 % ADA RECOMMENDED LIMIT 4.0 - 6.0 ADA THERAPEUTIC TARGET < 7.0 ACTION SUGGESTED > 7.0 Estimated Average Ryxbsme658Qqfdzpufox Lab:see note - [facility] LB Troponin I High Sensitivity Reviewed date:07/31/2024 08:21:34 PM Interpretation: Performing Lab: Notes/Report: [facility] ,Troponin I High Sensitivity<4.04.0-76.1 pg/mL CUT-OFF POINTS HAVE BEEN ESTABLISHED BASED ON THE FOURTH UNIVERSAL DEFINITION OF MYOCARDIAL INFARCTION. THE UPPER REFERENCE LIMIT (URL) OF TROPONIN, DEFINED THE 99TH PERCENTILE OF cTnI DISTRIBUTION IN A REFERENCE POPULATION, HAS BEEN CONFIRMED THE DECISION THRESHOLD FOR [place] DIAGNOSIS. 99TH PERCENTILE = 76.2 PG/ML NOTE: HIGH-SENSITIVITY TROPONIN ASSAY IS NOT INTENDED TO BE USED IN ISOLATION BUT SHOULD BE INTERPRETED IN CONJUNCTION WITH OTHER DIAGNOSTIC AND CLINICAL INFORMATION. Performing Lab:see noteML - [facility] LBTSH Reviewed date:07/31/2024 08:21:34 PM Interpretation: Performing Lab: Notes/Report: [facility] ,Thyroid Stimulating Hormone1.2540.358-3.740 uIU/mLPerforming Lab:see noteML - [facility] LBT4 Reviewed date:07/31/2024 08:21:34 PM Interpretation: Performing Lab: Notes/Report: [facility] ,T4 Thyroxine8.904.50-12.10 ug/dLPerforming Lab:see noteML - [facility] LBPROF 14(COMP METB) Reviewed date:07/31/2024 08:21:34 PM Interpretation: Performing Lab: Notes/Report: [facility] ,Tacfux847238-982 mmol/LPotassium4.23.5-5.1 mmol/OWosceixr35422-634 mmol/LCarbon Pypxqus39.521.0-32.0 mmol/LAnion Gap13.8Ciomosk89884-270 mg/dLBlood Urea Qpjgfvnk24.07.0-18.0 mg/dLCreatinine0.860.70-1.30 mg/dLEstimated GFR ( Yessica>60>=60 mL/min/1.73m 2Estimated GFR (Non- Morenita>60>=60 mL/min/1.73m 2BUN Creatinine Ratio19.8Upkvuoy6.88.5-10.1 mg/dLBilirubin Total0.50.2-1.0 mg/dL Aspartate Amino Ngewiuyzexc3942-11 U/LAlanine Hytfctjougtulnny1107-48 U/L Alkaline Lyodmellldn5315-432 U/LTotal Protein6.96.4-8.2 g/dLAlbumin Level3.63.4- 5.0 g/dLGlobulin3.3Albumin Globulin Ratio1.1Performing Lab:see noteML - [facility] LBGLUCOSE - IN OFFICE FINGERSTICK w/MONITOR Reviewed date:01/12/2025 12:55:39 PM Interpretation: Performing Lab: Notes/Report: [id number] - 106 MG/DLCBC AUTO DIFF Reviewed date:01/12/2025 12:55:39 PM Interpretation: Performing Lab: Notes/Report: [facility] ,White Blood Count16.14.0-11.0 10 3/uLRed Blood Count5.514.70-6.10 10 6/uL Fdoculjoki66.014.0-18.0 g/kCKpjonzrigd27.742.0-54.0 %Mean Corpuscular Wknbvh66.6 80.0-94.0 fLMean Corpuscular Eofghrlzyw59.925.9-34.0 pgMean Corpuscular HGB Conc 35.629.9-35.2 g/dLRed Cell Distribution Width11.911.0-15.0 %Platelet Tuktv372 150-450 10 3/uLMean Platelet Xocfes93.39.5-13.5 fLNeutrophils Percent Auto70.2 43.0-75.0 %Lymphocytes Percent Auto22.420.5-60.0 %Monocytes Percent Auto5.41.7- 12.0 %Eosinophils Percent Auto1.30.9-7.0 %Basophils Percent Auto0.30.2-2.0 % Immature Granulocytes Pct Auto0.40.0-0.5 %Neutrophils Absolute Auto11.31.4-6.5 10 3/uLLymphocytes Absolute Auto3.61.2-3.8 10 3/uLMonocytes Absolute Auto0.90.3- 0.8 10 3/uLEosinophils Absolute Auto0.20.0-0.7 10 3/uLBasophils Absolute Auto0.1 0.0-0.1 10 3/uLImmature Granulocytes Abs Auto0.060.00-0.03 10 3/uLPerforming Lab:see noteML - [facility] LBPROF 14(COMP METB) Reviewed date:01/12/2025 12:55:39 PM Interpretation: Performing Lab: Notes/Report: [facility] ,Ybkloc167274-793 mmol/LPotassium4.23.5-5.1 mmol/QQmgjxjgh99880-902 mmol/LCarbon Jarybpi92.721.0-32.0 mmol/LAnion Gap11.1Rucluln58165-248 mg/dLBlood Urea Rcvvywry55.07.0-18.0 mg/dLCreatinine0.870.70-1.30 mg/dLEstimated GFR ( Yessica>60>=60 mL/min/1.73m 2Estimated GFR (Non- Morenita>60>=60 mL/min/1.73m 2BUN Creatinine Ratio18.4Opgkdar0.98.5-10.1 mg/dLBilirubin Total0.50.2-1.0 mg/dL Aspartate Amino Doetwqbemgu4744-91 U/LAlanine Qjpudmfawzwwviyj6733-90 U/L Alkaline Frbetloufgd61020-394 U/LTotal Protein6.86.4-8.2 g/dLAlbumin Level3.7 3.4-5.0 g/dLGlobulin3.1Albumin Globulin Ratio1.2Performing Lab:see note - [facility] LBLIPID PROFILE Reviewed date:01/12/2025 12:55:39 PM Interpretation: Performing Lab: Notes/Report: [facility] ,Qwygxrzubnhot638<=150 mg/iDInnneezwfvg628<=200 mg/dLHDL Qfuuksvtuwe7673-00 mg/dL > or =60 mg/dl - LOW CARDIOVASCULAR RISK <40 mg/dl - HIGH CARDIOVASCULAR RISK VLDL GQILBIBAZCC258.6Chol HDL Ratio6.3 3.3 - 4.4 LOW RISK 4.4 - 7.1 AVERAGE RISK 7.1 - 11.0 MODERATE RISK >11.0 HIGH RISK [facility] LBGLYCOHEMOGLOBIN A1C Reviewed date:01/12/2025 12:55:39 PM Interpretation: Performing Lab: Notes/Report: [facility] ,Glycohemoglobin A1C10.14.5-6.2 % ADA RECOMMENDED LIMIT 4.0 - 6.0 ADA THERAPEUTIC TARGET < 7.0 ACTION SUGGESTED > 7.0 Estimated Average Yhiupic013Nfrcqtnzvy Lab:see note - [facility] LB DIRECT LDL Reviewed date:01/12/2025 12:55:39 PM Interpretation: Performing Lab: Notes/Report: [facility] ,LDL Cholesterol Yfaqld80 <100 mg/dl OPTIMAL 100-129 mg/dl NEAR OR ABOVE OPTIMAL 130-159 mg/dl BORDERLINE HIGH 160-189 mg/dl HIGH >190 mg/dl VERY HIGH Performing Lab:[facility] LB Reason For Referral No Information Medications Medication SIG (Take, Route, Frequency, Duration) Notes Start Date End Date Status Blood Glucose Meter - Use meter to monit or glucose daily. DX E11.9; Duration: 365 days 5ActiveAtorvastatin Calcium 40 MGOral; Duration: 30 DaysActive Hyoscyamine Sulfate 0.125 MG1-2 tabs SL SL every 4 hrs PRN abd pain02/21/2025 ActivecloNIDine HCl 0.1 MG1 tablet Orally tid; Duration: 30 days5Active Lisinopril 20 MGTAKE 1 TABLET BY MOUTH EVERY DAY FOR 90 DAYS; Duration: 90Active Lancets 33G -Use 1 lancet to poke finger to monitor glucose dialy. DX E11.9; Duration: 90 days5ActiveOLANZapine 10 MG1 tablet Orally Once a day; Duration: 30 day(s)5ActivemetFORMIN HCl 500 MG1 tablet with a meal Orally twice daily; Duration: 30 days01/22/2025tiveMeloxicam 15 MG1 tablet Orally Once a day; Duration: 30 days06/04/2025tiveVenlafaxine HCl ER 75 MG2 capsule with food Orally Once a day; Duration: 90 daysActiveTest Strips -Use 1 strip via meter to monitor glucose daily. DX E11.9; Duration: 90 days01/11/2025 ActiveALPRAZolam 0.25 MGTAKE 1 TABLET BY MOUTH TWICE A DAY; Duration: 30 5Active Social History Tobacco Use: Social History Observation Description Date Details (start date - stop date) Current Smoker 08/02/1995 - NA Tobacco Use/Smoking Question Answer Notes Patient is a current smoker When did you start smoking?08/02/1995How often do you smoke cigarettes?every day How many cigarettes a day do you smoke?21-30Additional Findings: Tobacco User Heavy cigarette smoker (20-39 cigs/day)AUDIT-C (Standard) Question Answer Notes Did you have a drink containing alcohol in the p ast year? No Ajrnxb7PrkazwoocvhtstXdfqestt Problems Problem Type SNOMED Code ICD Code Onset Dates Problem Status W/U Status Risk Notes Problem Palpitations (51450068) Palpitations (R00 .2) ActiveconfirmedProblemHypertension (59318186)Hypertension (I10)Activeconfirmed ProblemAnxiety (13402753)Anxiety (F41.9)ActiveconfirmedProblemInsomnia (395513774)Insomnia (G47.00)ActiveconfirmedProblemHypertriglyceridemia (027836985)Hypertriglyceridemia (E78.1)ActiveconfirmedProblemWell adult (523221935)Well adult (Z00.00)ActiveconfirmedProblemHeel pain (6020054)Heel pain (M79.673)ActiveconfirmedProblemhypercholesterolemia (disorder) (23931162) Hypercholesteremia (E78.00)ActiveconfirmedProblemType II diabetes mellitus without complication (883617121)Diabetes (E11.9)Activeconfirmed Vital Signs Blood pressure diastolic 78 mm Hg 06/04/2025 Khtlez41 in06/04/2025lood pressure edgcykrd624 mm Hg06/04/20257819Uvqknz092.6 lbs 06/04/2025BMI33.31 kg/m206/04/2025 Encounters Encounter Location Date Provider Diagnosis [facility] [address] [facility] [place] [address] 2024 Master Gamble Anxiety F41.9 [facility] [address] [facility] [place] [address] 2024 Master Gamble [facility] [place] [place] [address] 01/11/2025Doug [facility] [facility] [place] [address]/Doug [facility] [facility] [place] [address]/Doug [facility] [facility] [place] [address]/03/2025Doug HoyHypertension I10BVSt. [facility] [facility] [place] [address]/Doug [facility] [facility] [place] [address] 08/15/2024Doug [facility] [place] [place] [address]/Doug HoyAnxiety F41.9BM[facility] [place] [address]/Doug [facility] [place] [place] [address]/Doug [facility] [place] [place] [address]/ Master [facility]St[facility] [place] [place] [address]/Doug HoyAnxiety F41.9[place] [address] [place] [address]/Doug HoyHypertension C79FpziyzcUniversity Of [facility] Hospital[address] [place] [place] [address]/09/2024 Master HoyHeel pain M79.673BM[facility] [place] [place] [address]/Doug HoyDiabetes E11.9 and Hypertension I10 [place] [address] [place] [address] 07/31/2024oug HoyPalpitations R00.2 and Anxiety F41.9BMel[facility] [place] [address]/05/2025Doug HoyAnxiety F41.9 and Insomnia G47.00[facility] [place] [address]/06/2025Doug HoyHypertension I10 and Anxiety F41.9 [place] [address] [place] [address] 01/11/2025Doug HoyDry mouth R68.2 and Diabetes E11.9BMel[facility] [place] [address]/22/2025Doug Hoy Gastroenteritis K52.9 Assessments Encounter Date Diagnosis (ICD Code) Assessment Notes Treatment Notes Treatment Clinical Notes Section Notes 07/31/2024 Palpitations (ICD-10 - R00.2) 4Anxiety (ICD-10 - F41.9)08/11/2024nxiety (ICD-10 - F41.9)08/11/2024 Insomnia (ICD-10 - G47.00)08/23/2024Gastroenteritis (ICD-10 - K52.9) Get plenty of rest. Stay hydrated by sucking on ice chips or taking small sips of water. You can also try drinking clear soda, clear broths or noncaffeinated sports drinks. Stop eating solid foods for a few hours to let your stomach settle. East back into eating by eating bland, zvgl-yn-mmylyl foods like crackers, toast, gelatin, bananas, rice and chicken. Try to avoid foods/substances including dairy products, caffeine, alcohol, nicotine and fatty or highly seasoned foods. Medications such as ibuprofen or tylenol can make your stomach more upset, so use sparingly if at all. Also avoid vkfw-cpa-qqchokh anti-diarrheal medications because it can make it harder for your body to eliminate the virus. Not completely b anna finkld be better in 3 days 11/10/2024Hypertension (ICD-10 - I10)11/10/2024nxiety (ICD-10 - F41.9) 01/11/2025Dry mouth (ICD-10 - R68.2)01/11/2025Diabetes (ICD-10 - E11.9) 01/26/2025Diabetes (ICD-10 - E11.9)great start with meds and diet01/26/2025 Hypertension (ICD-10 - I10)great bp today01/19/2025Hypertension (ICD-10 - I10) 06/04/2025Heel pain (ICD-10 - M79.673)2024nxiety (ICD-10 - F41.9) 08/18/2024nxiety (ICD-10 - F41.9)09/14/2024nxiety (ICD-10 - F41.9)02/01/2025 Hypertension (ICD-10 - I10) Plan Of Treatment Pending Test Test Name Order Date CMP (COMPLETE METABOLIC PANEL) 3 CMP (COMPLETE METABOLIC PANEL) 4 HEMOGLOBIN A1C (GLYCO) 01/11/2025 HEMOGLOBIN A1C (GLYCO) 07/14/2023 HEMOGLOBIN A1C (GLYCO) 01/24/2024 INSULIN, TOTAL 01/24/2024 LIPID PANEL (CHOL/TRIG/HDL/LDL) 01/12/20 25 LIPID PANEL (CHOL/TRIG/HDL/LDL) 01/24/20 24 LIPID PANEL (CHOL/TRIG/HDL/LDL) 07/14/20 23 CBC WITH DIFF 07/14/2023 CBC WITH DIFF 01/24/2024 PSA, PROSTATE-SPECIFIC ANTIGEN 3 PSA, TOTAL 01/24/2024 STOOL OCCULT BLOOD 01/24/2024 LIPID PROFILE 01/26/2024 LIVER PROFILE 01/26/2024 XR FOOT LT MIN 3 VIEWS 06/04/2025 THYROID PANEL (T4/TSH/FREE T3) 4 THYROID PANEL (T4/TSH/FREE T3) 3 CMP (COMP MET WHALEY) w/eGFR CKD-EPI 2024 CBC WITH DIFF 01/11/2025 Insurance Providers Payer Name Payer Address Payer Phone Subscriber Number Group Number Insured Name Patient Relationship to Insured Coverage Start Date Coverage End Date [employer] [place] [employer] [address] [place] [id number] Roslyn Paniagua - patient is the insured Medical (General) History Medical History History ICD Code Impotence N52.9 Essential hypertension I10 Palpitations R00.2 Chest pain R07.9 Low back pain M54.5 Heart palpitations R00.2 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
--- OUTSIDE RECORDS SUMMARY | 2025-06-04 10:57 | XMS_ITS | Clinical Summary ---
Author Organization [facility] Address [address] [place] [address] Care Team Providers Care Tensile Tester Name Role Phone Stevie Benavidez MD Primary Care Provider [phone] Allergies No known active allergies Medications MedicationSigDispense QuantityRefillsLast FilledStart DateEnd DateStatus metoprolol tartrate (Lopressor) 50 mg tablet Take 1 tablet by mouth Twice daily at 6am and 6pm.5Active lisinopril 20 mg tablet Take 1 tablet by mouth in the morning.4Active venlafaxine XR (Effexor-XR) 75 mg 24 hr capsule 75 mg in the morning.5Active ALPRAZolam (Xanax) 0.25 mg tablet Take 1 tablet by mouth Twice daily at 6am and 6pm.5Active atorvastatin (Lipitor) 40 mg tablet Indications:Pure hypercholesterolemiaTake 1 tablet (40 mg) by mouth in the morning. 30 tablet 110503/ctive Active Problems ProblemNoted DateDiagnosed DateDiabetes mellitus type II, non insulin dependent 10/02/2024Erectile riyfdbwvbvs22/31/2025Neoplasm of uncertain behavior of skin of nose09/01/2024Precordial pain09/01/2024Dyspnea on ispiyabj79/31/2025 Zzdhmlwvnnnj92/31/1733Cxmposlpjjxwtc34/31/6281Vwgimieppdw67/31/2025Essential ukcywxnhyixf67/31/2025Tobacco abuse09/01/2024lass 1 obesity due to excess calories without serious comorbidity with body mass index (BMI) of 33.0 to 33.9 in adult09/01/2024 Family History Medical HistoryRelationNameCommentsKidney TransplantFatherHeart attackMother RelationNameStatusCommentsFatherMotherDeceased Social History Tobacco UseTypesPacks/DayYears UsedDateSmoking Tobacco: Every DayCigarettes Smokeless Tobacco: Never Tobacco Cessation:Ready to Q uit: Not Asked; Counseling Given: Not Answered Alcohol UseStandard Drinks/WeekCommentsNot Currently0 (1 standard drink = 0.6 oz pure alcohol)UT Safety & EnvironmentAnswerDate RecordedFear of Current or Ex-PartnerNot on file09/23/2023Emotionally AbusedNot on file09/23/2023hysically AbusedNot on file09/23/2023Sexually AbusedNot on file09/23/2023hysically or Sexually AbusedNot on file09/23/2023Sex and Gender InformationValueDate Recorded Sex Assigned at BirthNot on fileLegal LtfTrpb6901/28/2022 10:41 PM EDTGender IdentityNot on fileSexual OrientationNot on file Last Filed Vital Signs Vital SignReadingTime TakenCommentsBlood Jcqcmdtg899/7603 1:33 PM EST Xtfif6246 1:33 PM ESTTemperature--Respiratory Rate--Oxygen Dfkfffhnmw23% 10/02/2024 1:33 PM ESTInhaled Oxygen Concentration--Hbdarn024 kg (256 lb) 10/02/2024 1:33 PM FOPGwhufq385.9 cm (6')10/02/2024 1:33 PM ESTBody Mass Index 34.7203 1:33 PM EST Plan of Treatment Health MaintenanceDue DateLast DoneCommentsDiabetes: Hemoglobin A1C1980 Diabetes: Retinopathy Meoaduvzz87/13/1991Depression Xzrtiwpbk85/13/1993Varicella Vaccines (1 of 2 - 13+ 2-dose series)1993Diabetes: Urine Protein Screening 1999Hepatitis B Vaccines (1 of 3 - 19+ 3-dose series)1999 Pneumococcal Vaccine: Pediatrics (0 to 5 Years) and At-Risk Patients (6 to 64 Years) (1 of 2 - PCV)1999Adult Okiibkj7808/14/2002HPV Vaccines (1 - 3-dose SCDM series)2007COVID-19 Vaccine (2024- season)5002/19/2021, 01/14/2021, 01/05/2021, Additional history existsInfluenza Vaccine (#1) 04/02/2025Zoster Vaccines (1 of 2)2030HIB VaccinesAged OutNo longer eligible based on patient's age to complete this topicIPV VaccinesAged OutNo longer eligible based on patient's age to complete this topicMeningococcal B VaccineAged OutNo longer eligible based on patient's age to complete this topic Meningococcal VaccineAged OutNo longer eligible based on patient's age to complete this topicRotavirus VaccinesAged OutNo longer eligible based on patient's age to complete this topic Care Teams Team MemberRelationshipSpecialtyStart DateEnd Date Stevie Benavidez MD [address] [address] PCP - General08/14/24
--- NOTE | 2025-06-04 10:58 | XR_ITS ---
The [place] [id number] Patient Name: SILVIA ANDERSON MRN: [id number] date: 1980 Sex: M Assigned Patient Location: [facility] Current Patient Location: [facility] Accession/Order Number: [id number] Exam Date: 06/04/2025 11:15 Report Date: 06/04/2025 11:58 At the request of: REJI GAMBLE MD Procedure: XR foot RT min 3V RIGHT FOOT - 3 views CLINICAL DATA: Right heel pain. No injury. COMPARISON: None AP, lateral and oblique views were obtained. There is no evidence of fracture or dislocation. There are tiny calcaneal spurs. There are no significant soft tissue abnormalities. XR/XR foot RT min 3V IMPRESSION: CALCANEAL SPURS. NO ACUTE BONY FINDINGS. Impression dictated by: Sultana Rodríguez M.D. 06/04/2025 11:58 AM Dictation Location: [place] [address] Electronically authenticated by: [id number] Y Date: 06/04/2025 11:58
== END 2025-06-04 10:54 | disposition home or self-care (01) ==
LOC: RAD 10:55
PROVIDERS: PCP Family Medicine; Visit Provider Family Medicine
DX: M79.671 Pain in right foot (principal); M77.31 Calcaneal spur, right foot
CPT/HCPCS: 73630